=== PATIENT | male | born 1945 | race Caucasian/White ===

== ENCOUNTER → 2016-09-03 | Outpatient (CLI) | payer OTHER ==
[~2016-09-03] MED LIST: AMLO5TAB2 PO; ASPI32ECTA PO; ATOR1TAB21 PO; CIPR500T3 PO; DIPH25CA PO; HYDR-4267 PO; LISI25TA OR; METF1000 PO; TRAZ100T4 PO; TYLE325T5 PO; metoprolol OR
== END ==
LOC: M WUC 09:40
PROVIDERS: ATTEND Urology
DX: Z85.46 Personal history of malignant neoplasm of prostate (principal); R97.20 Elevated prostate specific antigen [PSA]

== ENCOUNTER → 2016-12-10 | Outpatient (CLI) | payer OTHER ==
[~2016-12-10] MED LIST changes: +LISI2.5T76 OR; -LISI25TA OR
== END ==
LOC: M WUC 10:19
PROVIDERS: ATTEND Urology
DX: C61 Malignant neoplasm of prostate (principal)

== ENCOUNTER → 2017-03-11 | Outpatient (CLI) | payer OTHER ==
[~2017-03-11] MED LIST changes: +ASPI325T24 PO; -ASPI32ECTA PO; +HYDR-3911 PO; -HYDR-4267 PO; -METF1000 PO; +METF10004 PO; +TRAZ-136 PO; -TRAZ100T4 PO
== END ==
LOC: M WUC 09:57
PROVIDERS: ATTEND Urology
DX: C61 Malignant neoplasm of prostate (principal)

== ENCOUNTER → 2017-09-18 | Outpatient (CLI) | payer OTHER ==
[2017-09-18 13:13] LABS: PROSTATIC SPECIFIC AG MONITOR < 0.01 NG/ML (< 4.0)
== END ==
LOC: M WUC 10:21
DX: C61 Malignant neoplasm of prostate (principal)
CPT/HCPCS: 84153

== ENCOUNTER → 2018-03-17 | Outpatient (CLI) | payer OTHER ==
[2018-03-17 14:40] LABS: PROSTATIC SPECIFIC AG MONITOR < 0.01 NG/ML (< 4.0)
== END ==
LOC: M WUC 10:56
DX: Z85.46 Personal history of malignant neoplasm of prostate (principal)
CPT/HCPCS: 84153

== ENCOUNTER → 2019-08-27 | Outpatient (CLI) | payer MEDICARE ==
[~2019-08-27] MED LIST changes: -AMLO5TAB2 PO; +AMLO5TAB6 PO; +ASPI-255 PO; -ASPI325T24 PO; -DIPH25CA PO; +DIPH25CA32 PO; -TRAZ-136 PO; +TRAZ-163 PO
[2019-08-27 14:00] LABS: HEMATOCRIT 39.8 % (42.0-52.0); HEMOGLOBIN 12.8 g/dl (13.5-17.5); MEAN CORPUSCULAR HEMOGLOBIN 30.7 pg (27.0-33.0); MEAN CORPUSCULAR HGB CONC 32.2 g/dl (32.0-36.5); MEAN CORPUSCULAR VOLUME 95.4 fl (80.0-96.0); PLATELET COUNT, AUTOMATED 384 10^3/uL (150-450); RED BLOOD COUNT 4.17 10^6/uL (4.30-6.10); WHITE BLOOD COUNT 12.2 10^3/uL (4.0-10.0)
[2019-08-27 14:22] LABS: HEMOGLOBIN A1c 6.6 %
[2019-08-27 14:25] LABS: ALBUMIN 3.5 GM/DL (3.2-5.2); BILIRUBIN,TOTAL 0.4 MG/DL (0.2-1.0); CALCIUM LEVEL 9.3 MG/DL (8.8-10.2); CHOLESTEROL RISK RATIO 3.406 (<5); CREATININE FOR GFR 1.58 MG/DL (0.70-1.30); GLOMERULAR FILTRATION RATE 46.1 (>42); POTASSIUM SERUM 5.4 MEQ/L (3.5-5.1); TOTAL PROTEIN 6.9 GM/DL (6.4-8.2)
== END ==
LOC: M WUC 11:48
PROVIDERS: ATTEND Internal Medicine
DX: I10 Essential (primary) hypertension (principal); E78.5 Hyperlipidemia, unspecified; E11.9 Type 2 diabetes mellitus without complications

== ENCOUNTER → 2020-02-10 | Outpatient (REF) | payer MEDICARE ==
[~2020-02-10] MED LIST changes: -TRAZ-163 PO; +TRAZ-257 PO
== END ==
LOC: M LAB REF 18:06
PROVIDERS: ATTEND Dermatology
DX: C44.622 Squamous cell carcinoma of skin of right upper limb, including shoulder (principal); L82.1 Other seborrheic keratosis
CPT/HCPCS: 11102; 11103; 88305; G0463

== ENCOUNTER → 2020-02-22 | Outpatient (REF) | payer MEDICARE ==
[~2020-02-22] MED LIST changes: +AMLO1TAB24 PO; -AMLO5TAB6 PO
== END ==
LOC: M LAB REF 17:46
PROVIDERS: ATTEND Dermatology
DX: L90.5 Scar conditions and fibrosis of skin (principal)

== ENCOUNTER → 2020-06-01 | Outpatient (REF) | payer MEDICARE | LOC: M LAB REF 18:17 | PROVIDERS: ATTEND Dermatology | DX: L57.0 Actinic keratosis (principal) | CPT/HCPCS: 11102; 88305; G0463 ==

== ENCOUNTER → 2021-05-30 | Outpatient (CLI) | payer MEDICARE ==
[~2021-05-30] MED LIST changes: +ASPI-161 PO; +CHLO25TA PO; +CLAR10CA3 PO; +LISI10TA22 PO; +LOPR1TAB7 PO
--- NOTE | 2021-05-31 07:50 | REP ---
INDICATION: CHEST PAIN, DYSPNEA COMPARISON: None TECHNIQUE: Axial noncontrast images from the thoracic inlet to the upper abdomen with coronal and sagittal reformations. This CT examination was performed using the following dose reduction techniques: Automated exposure control, adjustment of mA and/or kv according to the patient's size, and use of iterative reconstruction technique. FINDINGS: Large pleural effusion completely fills the right hemithorax with essentially complete collapse to the right upper lobe, right middle lobe, and right lower lobe. Underlying mass lesion cannot be excluded. Left hemithorax is well aerated and demonstrates scattered linear scarring primarily in the left upper lobe/lingula as well as suspected left hilar adenopathy. IMPRESSION: Large right pleural effusion completely fills the right hemithorax with essentially near complete collapse to the right lung. Underlying pathology including neoplasm cannot be excluded. <Electronically signed by Michael Harmon > 05/31/21 0746
== END ==
LOC: M RAD 14:51
PROVIDERS: ATTEND Internal Medicine
DX: J90 Pleural effusion, not elsewhere classified (principal); R07.89 Other chest pain; R06.00 Dyspnea, unspecified

== ENCOUNTER 2021-05-31 09:58 | Inpatient (IN) | payer MEDICARE ==
[2021-05-30] MEDS: DOXYCYCLINE HYCLATE 100 MG in D5W MINI-BAG PLUS 100 ML IV SCH (23:55)
[~2021-05-31] VITALS: Ht 167.6 cm; Wt 66.1 kg
[~2021-05-31 09:58] MED LIST changes: -ASPI-161 PO; -CHLO25TA PO; -CLAR10CA3 PO; -LISI10TA22 PO; -LOPR1TAB7 PO
--- NOTE | 2021-05-31 12:12 | REP ---
INDICATION: SOB. COMPARISON: Comparison chest x-ray November 08, 2015. Comparison is made with CT study of the chest from May 30, 2021. TECHNIQUE: PA and lateral views of the chest.. FINDINGS: The right hemithorax is almost completely opacified. There is small wedge of aerated lung in the perihilar region on the right. This corresponds with the CT findings from May 30, 2021. The left lung is clear except for some pleural and subpleural fibrosis in the left inferior chest. The left pleural angles are sharp. The heart is not enlarged. There is no observable mediastinal shift. The right hilar bronchi appear somewhat compressed to the left however. No bony destructive lesion is seen. Intercostal spaces are symmetrical. There are degenerative changes in the thoracic spine and the shoulders. IMPRESSION: Findings consistent with loculated large right pleural effusion with atelectasis of the right lung as seen on chest CT from May 30, 2021. The right hemithorax is nearly completely opacified. <Electronically signed by Myron Stuart > 05/31/21 [id number]
[2021-05-31 13:30] LABS: BASO # 0.1 10^3/uL (0.0-0.2); BASO % 0.8 % (0.0-1.0); EOS % 0.1 % (0.0-3.0); HEMATOCRIT 40.2 % (42.0-52.0); HEMOGLOBIN 12.7 g/dl (13.5-17.5); LYMPH # 1.7 10^3/uL (1.5-5.0); MEAN CORPUSCULAR HEMOGLOBIN 27.3 pg (27.0-33.0); MEAN CORPUSCULAR HGB CONC 31.6 g/dl (32.0-36.5); MEAN CORPUSCULAR VOLUME 86.3 fl (80.0-96.0); MONO # 1.2 10^3/uL (0.0-0.8); NEUTROPHILS # 13.6 10^3/uL (1.5-8.5); NEUTROPHILS % 78.7 % (36.0-66.0); PLATELET COUNT, AUTOMATED 505 10^3/uL (150-450); RED BLOOD COUNT 4.66 10^6/uL (4.30-6.10); WHITE BLOOD COUNT 17.3 10^3/uL (4.0-10.0)
[2021-05-31 13:40] LABS: INR 1.12; PROTHROMBIN TIME 14.8 SECONDS (12.7-14.5)
[2021-05-31 13:41] LABS: PARTIAL THROMBOPLASTIN TIME 30.3 SECONDS (25.9-37.0)
[2021-05-31 15:27] LABS: ALBUMIN 2.2 GM/DL (3.2-5.2); BILIRUBIN,TOTAL 0.4 MG/DL (0.2-1.0); CALCIUM LEVEL 8.9 MG/DL (8.8-10.2); CK-MB VALUE MASS 1.2 NG/ML (<3.6); CREATININE FOR GFR 1.55 MG/DL (0.70-1.30); GLOMERULAR FILTRATION RATE 46.9 (>42); MB/CK RELATIVE INDEX 3.43 (< OR =4); POTASSIUM SERUM 5.6 MEQ/L (3.5-5.1); TOTAL PROTEIN 5.6 GM/DL (6.4-8.2); TROPONIN I 0.02 NG/ML (< 0.10)
[2021-05-31] MEDS ORDERED: SOD POLYSTYRENE SULFONATE SUSP 15 GM/60 ML UD PO ONE (16:00)
[2021-05-31] MEDS ORDERED: CALCIUM GLUCONATE 1,000 MG in D5W MINI-BAG PLUS 100 ML IV ONE ×2 (16:00→18:30)
[2021-05-31] MEDS ORDERED: hydrALAZINE 20MG/ML 1ML VIAL (J0360 PER 20MG) IV ONE (16:10)
[2021-05-31] MEDS ORDERED: DEXTROSE 50% 50 ML SYRINGE IV PRN (16:10)
[2021-05-31] MEDS ORDERED: GLUCOSE 4GM CHEW TABLET PO PRN (16:10)
[2021-05-31] MEDS ORDERED: GLUCAGON INJ 1MG VIAL SC PRN (16:10)
[2021-05-31 16:32] LABS: C REACTIVE PROTEIN QUANTITATIV 3.26 MG/DL (0.00-0.30)
[2021-05-31 16:42] LABS: ERYTHROCYTE SEDIMENTATION RATE 36 mm/hr (0-20)
[2021-05-31 17:24] LABS: THYROID STIMULATING HORMONE 0.862 uIU/ML (0.358-3.740)
[2021-05-31] MEDS ORDERED: CHLO25TA PO (19:14)
[2021-05-31] MEDS ORDERED: LISI10TA22 PO (19:14)
[2021-05-31] MEDS ORDERED: LOPR1TAB7 PO (19:14)
[2021-05-31] MEDS ORDERED: ASPI-161 PO (19:14)
[2021-05-31] MEDS ORDERED: CLAR10CA3 PO (19:14)
[2021-05-31] MEDS ORDERED: HOME MED LIST COMPLETE! XX SCH (19:15)
--- NOTE | 2021-05-31 20:00 | HPEPDOC ---
[facility] Medical History & Physical Date of Admission May 31, 2021 Date of Service: May 31, 2021 History and Physical CHIEF COMPLAINT: Shortness of breath for 3 weeks HISTORY OF PRESENT ILLNESS: 76-year-old male sent to the emergency room by his primary care physician Dr. Venu Richey for admission to evaluate a large right pleural effusion with compression and collapse of the right lung on CT of the chest done as outpat ient. Patient complained of 3-week history of worsening shortness of breath, dyspnea on exertion walking from the bedroom to the bathroom, increasing fatigue. He denies fever, chills, cough, lower extremity edema, paroxysmal nocturnal dyspnea, pleuritic chest pain, nausea, vomiting, diarrhea, abdominal pain, hematemesis, coffee-ground emesis, black tarry stools, bright red blood per rectum. He admits to smoking one 1 pack of cigarettes over 2 days for over 40 years, on and off, quit a week ago, 2 pound weight loss over the past 2 weeks without change in appetite. In the emergency room patient was saturating 94% room air. EKG showed sinus rhythm. X-ray shows large loculated right pleural effusion with lung collapse. COVID-19 was negative. Transplant Rn was consulted for chest tube placement and management. PAST MEDICAL HISTORY: Diabetes Hypertension COPD Chronic kidney disease Chronic low back pain Prostate cancer Dyslipidemia Insomnia PAST SURGICAL HISTORY: Angioplasty kidneys and stent placement Knee surgery Robotic assisted radical prostatectomy in 2016 SOCIAL HISTORY: Quit smoking 1 week ago denies recreational drug use retired no alcohol abuse lives with at home FAMILY HISTORY: Father at age of 59 CAD myocardial infarction Mother ALLERGIES: Please see below. REVIEW OF SYSTEMS: 10 point review of systems negative aside from positive findings on HPI HOME MEDICATIONS: Please see below. PHYSICAL EXAMINATION: VITAL SIGNS: See below GENERAL APPEARANCE: Mild distress no nasal flaring completes 7-8 word sentences HEENT: No tracheal deviation dry mucous membranes no carotid bruit CARDIOVASCULAR: S1-S2 regular rate rhythm LUNGS: Diminished breath sounds dullness to percussion on the right decreased fremitus egophony ABDOMEN: Positive bowel sounds soft nontender nondistended EXTREMITIES: No cyanosis, clubbing LABORATORY DATA: See below. IMAGING: See below MICROBIOLOGY: Please see below. ASSESSMENT: 76-year-old male sent to the emergency room by his primary care physician Dr. Venu Richey for admission to evaluate a large right pleural effusion with compression and collapse of the right lung on CT of the chest done as outpatient. Patient complained of 3-week history of worsening shortness of breath, dyspnea on exertion walking from the bedroom to the bathroom, increasing fatigue. He denies fever, chills, cough, lower extremity edema, paroxysmal nocturnal dyspnea, pleuritic chest pain, nausea, vomiting, diarrhea, abdominal pain, hematemesis, coffee-ground emesis, black tarry stools, bright red blood per rectum. He admits to smoking one 1 pack of cigarettes over 2 days for over 40 years, on and off, quit a week ago, 2 pound weight loss over the past 2 weeks without change in appetite. In the emergency room patient was saturating 94% room air. EKG showed sinus rhythm. X-ray shows large loculated right pleural effusion with lung collapse. COVID-19 was negative. Transplant Rn was consulted for chest tube placement and management. Large Right loculated pleural effusion with lung collapse -slurry man consulted for chest tube placement and management -pleural fluid analysis :cytology, exudative vs transudative, infectious, rheumatologic check TONIA, TSH -saturating 94% on RA -negative covid 19, afebrile -leukocytosis.empiric abx coverage.dx if negative sputum cx. - check procalcitonin, check sputum sample, urine legionella, urine strep pneumo HTN urgency -resumed home meds -pcu admit -prn iv hydralazine, add isosorbide Elevated BNP/?new onset CHF unknown EF -check 2 Decho -trial of lasix CKD3 -resumed lisinopril Hyperkalemia -given kayexalate and calcium gluconate -tele monitoring tobacco abuse /copd -cessation counselling nicotine replacement risk for malignant pleural effusion-await cytology from pleural fluid Vital Signs Vital Signs Date Time Temp Pulse Resp B/P (MAP) Pulse Ox O2 Delivery O2 Flow Rate FiO2 05/31/21 18:05 227/102 05/31/21 18:02 78 05/31/21 10:00 98.4 18 92 Room Air Laboratory Data Labs 24H Laboratory Tests 2 05/31/21 13:05: Prothrombin Time 14.8H, Prothromb Time International Ratio 1.12, Activated Partial Thromboplast Time 30.3 05/31/21 13:06: Immature Granulocyte % (Auto) 3.4H, Neutrophils (%) (Auto) 78.7H, Lymphocytes (%) (Auto) 10.0L, Monocytes (%) (Auto) 7.0, Eosinophils (%) (Auto) 0.1, Basophils (%) (Auto) 0.8, Neutrophils # (Auto) 13.6H, Lymphocytes # (Auto) 1.7, Monocytes # (Auto) 1.2H, Eosinophils # (Auto) 0.0, Basophils # (Auto) 0.1, Nucleated Red Blood Cells % (auto) 0.0, Erythrocyte Sedimentation Rate 36H 05/31/21 14:36: Anion Gap 5L, Glomerular Filtration Rate 46.9, Calcium Level 8.9, Phosphorus Level 3.0, Total Bilirubin 0.4, Aspartate Amino Transf (AST/SGOT) 10, Alanine Aminotransferase (ALT/SGPT) 15, Alkaline Phosphatase 102, Lactate Dehydrogenase 191, Total Creatine Kinase 35L, Creatine Kinase MB 1.2, Creatine Kinase MB Relative Index 3.43, Troponin I 0.02, C-Reactive Protein, Quantitative 3.26H, XT-Vmt-N-Type Natriuretic Peptide 4011H, Total Protein 5.6L, Albumin 2.2L, Albumin/Globulin Ratio 0.6, Triglycerides Level 170H, Cholesterol Level 109, Thyroid Stimulating Hormone (TSH) 0.862 05/31/21 17:11: Procalcitonin 0.07 CBC/BMP Laboratory Tests 05/31/21 13:06 05/31/21 14:36 Microbiology Microbiology 05/31/21 Blood Culture, Received Pending 05/31/21 Respiratory Virus Panel (PCR) ([facility]) - Final, Complete Home Medications Scheduled Amlodipine Besylate (Amlodipine Besylate) 5 Mg Tab, 5 MG PO DAILY Aspirin (Aspirin EC) 81 Mg Tablet.dr, 81 MG PO QPM Atorvastatin Calcium (Atorvastatin Calcium) 20 Mg Tab, 20 MG PO QPM Chlorthalidone (Chlorthalidone) 25 Mg Tablet, 25 MG PO DAILY Diphenhydramine HCl (Diphenhydramine HCl) 25 Mg Cap, 25 MG PO QHS Hydralazine HCl (Hydralazine HCl) 50 Mg Tab, 50 MG PO TID Lisinopril (Lisinopril) 10 Mg Tablet, 10 MG PO DAILY Loratadine (Claritin) 10 Mg Capsule, 10 MG PO DAILY Metformin HCl (Metformin HCl) 1,000 Mg Tab, 1,000 MG PO BID Metoprolol Tartrate (Lopressor) 100 Mg Tablet, 100 MG PO BID Trazodone HCl (Trazodone HCl) 100 Mg Tab, 100 MG PO QHS Allergies Coded Allergies: No Known Allergies (Verified , 03/06/03) A-FIB/CHADSVASC A-FIB History Current/History of A-Fib/PAF?: No Current PO Anticoag Therapy: No Age/Risk Factor Scoring CHADSVASC: CHADSVASC Response (Comments) Value Age Risk Factor Age 65-74 years old 1 Gender Risk Factor Male 0 Hx of CHF No 0 Hx of HTN Yes 1 Hx of Stroke/TIA/or VTE No 0 Hx of Diabetes No 0 Hx of Vascular Disease No 0 Total 2 Treatment Treatment ordered: NONE JOHN MATOS MD May 31, 2021 19:58
--- NOTE | 2021-05-31 20:01 | ECGEPIP ---
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
--- NOTE | 2021-05-31 21:08 | REPVR ---
PROCEDURE INFORMATION: Exam: CT Head Without Contrast Exam date and time: 05/31/2021 8:30 PM Age: 76 years old Clinical indication: Other: Hypertensive urgency; Additional info: Hypertensive urgency R/O intracranial hemorrhage TECHNIQUE: Imaging protocol: Computed tomography of the head without contrast. Radiation optimization: All CT scans at this facility use at least one of these dose optimization techniques: automated exposure control; mA and/or kV adjustment per patient size (includes targeted exams where dose is matched to clinical indication); or iterative reconstruction. COMPARISON: No relevant prior studies available. FINDINGS: Brain: Decreased attenuation of the supratentorial white matter is likely secondary to chronic microvascular ischemia. No acute intracranial hemorrhage. Cerebral ventricles: Ventricular and subarachnoid spaces are age appropriate. Paranasal sinuses: Mild scattered paranasal sinus disease. Mastoid air cells: Mild partial opacification of the mastoid air cells. Vasculature: Intracranial vascular calcification. Bones/joints: Unremarkable. No acute fracture. Soft tissues: Unremarkable. IMPRESSION: No acute intracranial abnormality. Electronically signed by: Tono Byrnes On 05/31/2021 21:08:06 PM
[2021-05-31 21:25] VITALS: BP 195/86
[2021-05-31] MEDS: FUROSEMIDE 40MG/4ML VIAL (J1940) IV SCH (22:51)
[2021-05-31] MEDS: cefTRIAXone SOD 2 GM in D5W MINI-BAG PLUS 50 ML IV SCH (22:51)
[2021-05-31] MEDS: **hydrALAZINE** 50 MG TAB PO SCH (22:52)
[2021-05-31] MEDS: METOPROLOL TARTRATE 100 MG TAB PO SCH (22:52)
[2021-05-31] MEDS: HumaLOG INSULIN (NovoLOG) PER UNIT SC SCH ×2 (22:58→23:02)
[2021-05-31] MEDS: ISOSORBIDE DIN. (ISORDIL) 20 MG TAB PO SCH (23:03)
[2021-06-01] VITALS (7 sets, daily range): BP systolic 134–186; BP diastolic 67–87
[2021-06-01 00:07] LABS: CALCIUM LEVEL 9.4 MG/DL (8.8-10.2); CK-MB VALUE MASS 3.1 NG/ML (<3.6); CREATININE FOR GFR 1.52 MG/DL (0.70-1.30); MB/CK RELATIVE INDEX 8.61 (< OR =4); POTASSIUM SERUM 4.6 MEQ/L (3.5-5.1); TROPONIN I 0.03 NG/ML (< 0.10)
[2021-06-01] MEDS: ISOSORBIDE DIN. (ISORDIL) 20 MG TAB PO SCH ×2 (00:26→04:56)
[2021-06-01] MEDS: hydrALAZINE 20MG/ML 1ML VIAL (J0360 PER 20MG) IV PRN (01:09)
[2021-06-01] MEDS: FUROSEMIDE 40MG/4ML VIAL (J1940) IV SCH (04:46)
[2021-06-01 06:19] LABS: BASO # 0.1 10^3/uL (0.0-0.2); BASO % 0.6 % (0.0-1.0); EOS % 0.1 % (0.0-3.0); HEMATOCRIT 38.3 % (42.0-52.0); HEMOGLOBIN 12.1 g/dl (13.5-17.5); LYMPH # 2.1 10^3/uL (1.5-5.0); LYMPH % 11.1 % (24.0-44.0); MEAN CORPUSCULAR HGB CONC 31.6 g/dl (32.0-36.5); MEAN CORPUSCULAR VOLUME 85.5 fl (80.0-96.0); MONO # 1.4 10^3/uL (0.0-0.8); MONO % 7.6 % (2.0-8.0); NEUTROPHILS # 14.4 10^3/uL (1.5-8.5); NEUTROPHILS % 77.6 % (36.0-66.0); PLATELET COUNT, AUTOMATED 538 10^3/uL (150-450); RED BLOOD COUNT 4.48 10^6/uL (4.30-6.10); WHITE BLOOD COUNT 18.5 10^3/uL (4.0-10.0)
[2021-06-01 06:29] LABS: INR 1.24; PARTIAL THROMBOPLASTIN TIME 32.2 SECONDS (25.9-37.0); PROTHROMBIN TIME 16.1 SECONDS (12.7-14.5)
[2021-06-01 06:42] LABS: ALBUMIN 2.2 GM/DL (3.2-5.2); BILIRUBIN,DIRECT 0.1 MG/DL (0.0-0.2); BILIRUBIN,TOTAL 0.4 MG/DL (0.2-1.0); CALCIUM LEVEL 9.3 MG/DL (8.8-10.2); CREATININE FOR GFR 1.52 MG/DL (0.70-1.30); MAGNESIUM LEVEL 1.6 MG/DL (1.8-2.4); POTASSIUM SERUM 4.3 MEQ/L (3.5-5.1); TOTAL PROTEIN 5.9 GM/DL (6.4-8.2)
[2021-06-01] MEDS ORDERED: MAG SULF 1GM/100ML (MAG RUN) 1 GM in IV 1 EA IV ONE (08:00)
[2021-06-01] MEDS: HumaLOG INSULIN (NovoLOG) PER UNIT SC SCH ×4 (08:12→21:00)
[2021-06-01] MEDS: METOPROLOL TARTRATE 100 MG TAB PO SCH ×2 (08:12→21:16)
[2021-06-01] MEDS: **hydrALAZINE** 50 MG TAB PO SCH ×3 (08:12→21:16)
--- NOTE | 2021-06-01 08:59 | IPNPDOC ---
Date Seen The patient was seen on 06/01/21. Progress Note Subjective: Still complains of shortness of breath, dyspnea on exertion when walking from bed to the bathroom, but denies chest pain pressure tightness lightheadedness dizziness fever chills. Has cough productive of white sputum. Objective: PHYSICAL EXAMINATION: VITAL SIGNS: See below GENERAL APPEARANCE: No use of respiratory accessory muscles cyanosis Has conversational dyspnea but able to say 7-8 words HEENT: No tracheal deviation moist mucous membranes no carotid bruit CARDIOVASCULAR: S1-S2 regular rate rhythm LUNGS: Diminished breath sounds dullness to percussion on the right decreased fremitus egophony ABDOMEN: Positive bowel sounds soft nontender nondistended EXTREMITIES: No cyanosis, clubbing LABORATORY DATA: See below. IMAGING: See below MICROBIOLOGY: Please see below. ASSESSMENT: 76-year-old male sent to the emergency room by his primary care physician Dr. Venu Richey for admission to evaluate a large right pleural effusion with compression and collapse of the right lung on CT of the chest done as outpatient. Patient complained of 3-week history of worsening shortness of breath, dyspnea on exertion walking from the bedroom to the bathroom, increasing fatigue. He denies fever, chills, cough, lower extremity edema, paroxysmal nocturnal dyspnea, pleuritic chest pain, nausea, vomiting, diarrhea, abdominal pain, hematemesis, coffee-ground emesis, black tarry stools, bright red blood per rectum. He admits to smoking one 1 pack of cigarettes over 2 days for over 40 years, on and off, quit a week ago, 2 pound weight loss over the past 2 weeks without change in appetite. In the emergency room patient was saturating 94% room air. EKG showed sinus rhythm. X-ray shows large loculated right pleural effusion with lung collapse. COVID-19 was negative. Mandarin Speaking Nanny was consulted for chest tube placement and management. Large Right loculated pleural effusion with lung collapse Mandarin Speaking Nanny consulted for chest tube placement and management Pleural fluid will be sent for analysis Concern for malignancy due to longtime history of tobacco abuse. Due to leukocytosis patient was started on empiric antibiotics for possible pneumonia and parapneumonic effusion, but unlikely Discontinue antibiotics once cultures from pleural fluid are negative HTN urgency Improved overnight Status post IV hydralazine isosorbide lisinopril metoprolol and Norvasc Resumed home meds IV hydralazine as needed Telemetry monitoring Elevated BNP/?new onset CHF unknown EF -Ordered 2 Decho -No significant improvement with Lasix overnight CKD3 -resumed lisinopril -Remained stable even after Lasix diuresis overnight Hyperkalemia, resolved -given kayexalate and calcium gluconate -tele monitoring tobacco abuse /copd -cessation counselling nicotine replacement risk for malignant pleural effusion-await cytology from pleural fluid VS, I&O, 24H, Fishbone Vital Signs/I&O Vital Signs Date Time Temp Pulse Resp B/P (MAP) Pulse Ox O2 Delivery O2 Flow Rate FiO2 06/01/21 08:12 80 153/78 06/01/21 07:19 98.4 17 90 Room Air I&O- Last 24 Hours up to 6 AM 06/01/21 06:00 Intake Total 210 ml Output Total 375 ml Balance -165 ml Laboratory Data 24H LABS Laboratory Tests 2 05/31/21 13:05: Prothrombin Time 14.8H, Prothromb Time International Ratio 1.12, Activated Partial Thromboplast Time 30.3 05/31/21 13:06: Immature Granulocyte % (Auto) 3.4H, Neutrophils (%) (Auto) 78.7H, Lymphocytes (%) (Auto) 10.0L, Monocytes (%) (Auto) 7.0, Eosinophils (%) (Auto) 0.1, Basophils (%) (Auto) 0.8, Neutrophils # (Auto) 13.6H, Lymphocytes # (Auto) 1.7, Monocytes # (Auto) 1.2H, Eosinophils # (Auto) 0.0, Basophils # (Auto) 0.1, Nucleated Red Blood Cells % (auto) 0.0, Erythrocyte Sedimentation Rate 36H 05/31/21 14:36: Anion Gap 5L, Glomerular Filtration Rate 46.9, Calcium Level 8.9, Phosphorus Level 3.0, Total Bilirubin 0.4, Aspartate Amino Transf (AST/SGOT) 10, Alanine Am inotransferase (ALT/SGPT) 15, Alkaline Phosphatase 102, Lactate Dehydrogenase 191, Total Creatine Kinase 35L, Creatine Kinase MB 1.2, Creatine Kinase MB Relative Index 3.43, Troponin I 0.02, C-Reactive Protein, Quantitative 3.26H, HH-Jgd-B-Type Natriuretic Peptide 4011H, Total Protein 5.6L, Albumin 2.2L, Albumin/Globulin Ratio 0.6, Triglycerides Level 170H, Cholesterol Level 109, Thyroid Stimulating Hormone (TSH) 0.862 05/31/21 17:11: Procalcitonin 0.07 05/31/21 22:58: Bedside Glucose (Misc Panel) 250H 05/31/21 23:12: Anion Gap 8, Glomerular Filtration Rate 48.0, Calcium Level 9.4, Total Creatine Kinase 36L, Creatine Kinase MB 3.1, Creatine Kinase MB Relative Index 8.61H, Troponin I 0.03# 06/01/21 05:21: Anion Gap 11, Glomerular Filtration Rate 48.0, Calcium Level 9.3, Immature Granulocyte % (Auto) 3.0, Neutrophils (%) (Auto) 77.6H, Lymphocytes (%) (Auto) 11.1L, Monocytes (%) (Auto) 7.6, Eosinophils (%) (Auto) 0.1, Basophils (%) (Auto) 0.6, Neutrophils # (Auto) 14.4H, Lymphocytes # (Auto) 2.1, Monocytes # (Auto) 1.4H, Eosinophils # (Auto) 0.0, Basophils # (Auto) 0.1, Nucleated Red Blood Cells % (auto) 0.0, Prothrombin Time 16.1H, Prothromb Time International Ratio 1.24, Activated Partial Thromboplast Time 32.2, Magnesium Level 1.6L, Total Bilirubin 0.4, Direct Bilirubin 0.1, Aspartate Amino Transf (AST/SGOT) 10, Alanine Aminotransferase (ALT/SGPT) 15, Alkaline Phosphatase 109, Lactate Dehydrogenase 222, Total Protein 5.9L, Albumin 2.2L, Albumin/Globulin Ratio 0.6 CBC/BMP Laboratory Tests 05/31/21 13:06 05/31/21 14:36 05/31/21 23:12 06/01/21 05:21 Microbiology Microbiology 05/31/21 Blood Culture, Received Pending 05/31/21 Respiratory Virus Panel (PCR) ([facility]) - Final, Complete JOHN MATOS MD Jun 01, 2021 08:59
[2021-06-01] MEDS ORDERED: amLODIPine 5 MG TAB PO SCH (09:00)
[2021-06-01] MEDS ORDERED: LIDOCAINE 1% MDV 20ML VIAL As Ordered ONE (09:06)
--- NOTE | 2021-06-01 09:17 | REP ---
INDICATION: sob. COMPARISON: Comparison chest radiograph May 31, 2021. TECHNIQUE: Portable upright AP chest radiograph. FINDINGS: There is now complete opacification of the right hemithorax consistent with progressive atelectasis on of the small amount of remaining aerated lung visible yesterday. There is pleuroparenchymal fibrosis and calcification on the left. Heart is not enlarged. No left-sided infiltrate is seen. Pulmonary vasculature is somewhat congested in the left lung. There is evidence of a radiolucent lesion in the proximal humeral diaphysis on the left on today's chest x-ray. This measures 3.2 cm in greatest diameter. This is felt to be highly suspicious for a bony metastatic deposit. On review of the chest CT from May 30, 2021, there is a lytic lesion in the right scapula visible. there are mottled lucencies in the spine and sternum as well. EKG monitoring electrodes are seen. IMPRESSION: Complete opacification of the right hemithorax. Some vascular congestion in the left lung. 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 <Electronically signed by Myron Stuart > 06/01/21 0913
[2021-06-01] MEDS: DOXYCYCLINE HYCLATE 100 MG in D5W MINI-BAG PLUS 100 ML IV SCH ×2 (09:22→22:13)
--- NOTE | 2021-06-01 10:07 | CR.PDOC ---
General Date of Consultation: Jun 01, 2021 Referring Provider: JOHN MATOS MD Consultation REASON FOR CONSULTATION/CHIEF COMPLAINT: Referred by PMD for pleural effusion HISTORY OF PRESENT ILLNESS: 76-year-old man with hypertension, diabetes, CKD was referred to the ED by his primary care for abnormal CT chest. Upon speaking with the patient he denied any symptoms leading up to his presentation to the ED however he may be poor historian. He denies shortness of breath, cough, hemoptysis, fever, chills, weight loss. He is a former smoker he says he quit 3 weeks ago he said he smoked for about 10 years about 1 pack/day. The patient presented to the ER he was not in any distress, he was 90% on room air, pulm danni was consulted for large right pleural effusion requiring drainage. ALLERGIES: Please see below. HOME MEDICATIONS: Please see below. PAST MEDICAL HISTORY: Hypertension, diabetes, CKD PAST SURGICAL HISTORY: Angioplasty kidneys and stent placement Knee surgery Robotic assisted radical prostatectomy in 2016 FAMILY HISTORY: Father had CAD SOCIAL HISTORY: Denies alcohol use and or drug use. He used to work in a paper pulp industry. He is functional at home with his daily activities. He is a former smoker quit about 1 month ago smoked 1 pack/day for 10 years. REVIEW OF SYSTEMS: CONSTITUTIONAL: Denies fever, chills, night sweats, weight loss EYES: No blurring of vision or redness. ENT: No sore throat. No epistaxis. No tinnitus. CARDIOVASCULAR: No chest pain. No palpitations. RESPIRATORY: See HPI GASTROINTESTINAL: No nausea, vomiting, or diarrhea. GENITOURINARY: No frequency, urgency, nocturia. No hematuria or dysuria. MUSCULOSKELETAL: No arthralgias or myalgias. INTEGUMENTARY: No rash or swelling NEUROLOGIC: No headache. No numbness or tingling of the extremities. No weakness. PSYCHIATRIC: No confusion or mood changes. ENDOCRINE: No fatigue, no goiter. HEMATOLOGICAL: No bleeding. No petechiae. No bruising. PHYSICAL EXAMINATION: VITAL SIGNS: Please see below. GENERAL APPEARANCE: Alert and awake. . HEENT: no thyromegaly, trachea midline, PERRLA. normal mucous membranes . RESPIRATORY: Reduced to absent breath sounds on the right, good air entry. CARDIOVASCULAR: +s1 s2, no murmurs. ABDOMEN: nontender, not distended, +BS EXTREMITIES: no edema or erythema. palpable distal pulses SKIN: no rash, no purpura NEUROLOGICAL: no sensory or motor deficits, orientedx3. LABORATORY DATA: Please see below. Labs and Imaging personally reviewed by me. Pertinent imaging: Large right hemithorax pleural effusion on CT chest with suspected left hilar adenopathy Pertinent labs: WBC count is 18, coagulation studies are normal, creatinine is 1.52 and appears at baseline ASSESSMENT: 1. Large right-sided pleural effusion, patient is asymptomatic. 90% on room air 2. Clinically no evidence of pneumonia, leukocytosis may be reactive from the large effusion PLAN: * Discussed with patient the option of drainage today with a small chest tube he agreed. * We will send pleural fluid for cytology, cell counts, LDH, protein, BNP, cultures, pH, glucose * Check procalcitonin, would DC antibiotics if negative * DVT prophylaxis Vital Signs/I&O Vital Signs Date Time Temp Pulse Resp B/P (MAP) Pulse Ox O2 Delivery O2 Flow Rate FiO2 06/01/21 08:12 80 153/78 06/01/21 07:19 98.4 17 90 Room Air I&O- Last 24 Hours up to 6 AM 06/01/21 06:00 Intake Total 210 ml Output Total 375 ml Balance -165 ml Laboratory Data Labs 24H Laboratory Tests 2 05/31/21 13:05: Prothrombin Time 14.8H, Prothromb Time International Ratio 1.12, Activated Partial Thromboplast Time 30.3 05/31/21 13:06: Immature Granulocyte % (Auto) 3.4H, Neutrophils (%) (Auto) 78.7H, Lymphocytes (%) (Auto) 10.0L, Monocytes (%) (Auto) 7.0, Eosinophils (%) (Auto) 0.1, Basophils (%) (Auto) 0.8, Neutrophils # (Auto) 13.6H, Lymphocytes # (Auto) 1.7, Monocytes # (Auto) 1.2H, Eosinophils # (Auto) 0.0, Basophils # (Auto) 0.1, Nucleated Red Blood Cells % (auto) 0.0, Erythrocyte Sedimentation Rate 36H 05/31/21 14:36: Anion Gap 5L, Glomerular Filtration Rate 46.9, Calcium Level 8.9, Phosphorus Level 3.0, Total Bilirubin 0.4, Aspartate Amino Transf (AST/SGOT) 10, Alanine Aminotransferase (ALT/SGPT) 15, Alkaline Phosphatase 102, Lactate Dehydrogenase 191, Total Creatine Kinase 35L, Creatine Kinase MB 1.2, Creatine Kinase MB Relative Index 3.43, Troponin I 0.02, C-Reactive Protein, Quantitative 3.26H, XD-Ruv-E-Type Natriuretic Peptide 4011H, Total Protein 5.6L, Albumin 2.2L, Albumin/Globulin Ratio 0.6, Triglycerides Level 170H, Cholesterol Level 109, Thyroid Stimulating Hormone (TSH) 0.862 05/31/21 17:11: Procalcitonin 0.07 05/31/21 22:58: Bedside Glucose (Misc Panel) 250H 05/31/21 23:12: Anion Gap 8, Glomerular Filtration Rate 48.0, Calcium Level 9.4, Total Creatine Kinase 36L, Creatine Kinase MB 3.1, Creatine Kinase MB Relative Index 8.61H, Troponin I 0.03# 06/01/21 05:21: Anion Gap 11, Glomerular Filtration Rate 48.0, Calcium Level 9.3, Immature Granulocyte % (Auto) 3.0, Neutrophils (%) (Auto) 77.6H, Lymphocytes (%) (Auto) 11.1L, Monocytes (%) (Auto) 7.6, Eosinophils (%) (Auto) 0.1, Basophils (%) (Aut o) 0.6, Neutrophils # (Auto) 14.4H, Lymphocytes # (Auto) 2.1, Monocytes # (Auto) 1.4H, Eosinophils # (Auto) 0.0, Basophils # (Auto) 0.1, Nucleated Red Blood Cells % (auto) 0.0, Prothrombin Time 16.1H, Prothromb Time International Ratio 1.24, Activated Partial Thromboplast Time 32.2, Magnesium Level 1.6L, Total Bilirubin 0.4, Direct Bilirubin 0.1, Aspartate Amino Transf (AST/SGOT) 10, Alanine Aminotransferase (ALT/SGPT) 15, Alkaline Phosphatase 109, Lactate Dehydrogenase 222, Total Protein 5.9L, Albumin 2.2L, Albumin/Globulin Ratio 0.6 CBC/BMP Laboratory Tests 05/31/21 13:06 05/31/21 14:36 05/31/21 23:12 06/01/21 05:21 Microbiology Microbiology 05/31/21 Blood Culture, Received Pending 10/1/21 Respiratory Virus Panel (PCR) ([facility]) - Final, Complete Allergies Coded Allergies: No Known Allergies (Verified , 03/06/03) Home Medications Scheduled Amlodipine Besylate (Amlodipine Besylate) 5 Mg Tab, 5 MG PO DAILY, (Reported) Aspirin (Aspirin EC) 81 Mg Tablet.dr, 81 MG PO QPM, (Reported) Atorvastatin Calcium (Atorvastatin Calcium) 20 Mg Tab, 20 MG PO QPM, (Reported) Chlorthalidone (Chlorthalidone) 25 Mg Tablet, 25 MG PO DAILY, (Reported) Diphenhydramine HCl (Diphenhydramine HCl) 25 Mg Cap, 25 MG PO QHS, (Reported) Hydralazine HCl (Hydralazine HCl) 50 Mg Tab, 50 MG PO TID, (Reported) Lisinopril (Lisinopril) 10 Mg Tablet, 10 MG PO DAILY, (Reported) Loratadine (Claritin) 10 Mg Capsule, 10 MG PO DAILY, (Reported) Metformin HCl (Metformin HCl) 1,000 Mg Tab, 1,000 MG PO BID, (Reported) Metoprolol Tartrate (Lopressor) 100 Mg Tablet, 100 MG PO BID, (Reported) Trazodone HCl (Trazodone HCl) 100 Mg Tab, 100 MG PO QHS, (Reported) HAMMAD GONZALEZ MD Jun 01, 2021 10:07
--- NOTE | 2021-06-01 11:55 | ROOPDOC ---
[facility] Report Of Operation Report of Operation INDICATION: Pleural effusion PROCEDURE: Right side 14 Marshallese chest tube placement PROCEDURE DRAWBENCH OPERATOR: Dr. Honag CONSENT: Consent was obtained prior to the procedure. Indications, risks, and benefits were explained at length. PROCEDURE SUMMARY: A time out was performed and after the chest x-ray was reviewed, the appropriate side was confirmed and marked. My hands were washed immediately prior to the procedure. I wore a surgical cap, mask with protective eyewear, sterile gown and sterile gloves throughout the procedure. The patient was prepped and draped in a sterile manner using chlorhexidine scrub after the patient was positioned in the usual fashion. A total of 5 ml of 1% lidocaine was used to anesthesize the skin, subcutaneous tissue, superior aspect of the rib periosteum and parietal pleura. Using a 18-gauge needle the pleural space was accessed. Syringe was removed from the needle and guidewire was inserted through the needle into the pleural space. A 2 cm incision around the guidewire was made using a scalpel. The dilator was then threaded over the guidewire and several passes were made to dilate the tract for the chest tube. The 14 Marshallese chest tube was then inserted over the guidewire into the pleural space. Appropriate amount of pleural fluid started to drain from the chest tube and the guidewire was then removed. Appropriate specimens were obtained. Then the chest tube was attached to the drainage device and pleural fluid started to drain. 1.5 L of yellow fluid was drained almost immediately and patient started to cough so the chest tube was clamped. Small suture in the skin was used to anchor and secured the chest tube in place. Sterile dressings were applied. Approximately 300 cc of pleural fluid was taken for specimen analysis. The patient tolerated the procedure well. There was minimal blood loss approximately 5 cc. Postprocedural chest x-ray is pending. HAMMAD HOANG MD Jun 01, 2021 11:55
--- NOTE | 2021-06-01 12:12 | REP ---
INDICATION: S/p right CT placement. COMPARISON: Comparison is made with a 8:11 a.m. chest x-ray from this date. TECHNIQUE: Sitting portable AP radiograph 11:43 a.m. film. Single-view. FINDINGS: A right chest tube has been placed at the base terminating and medially. The right hemithorax is improved. There is considerable circumferential pleural thickening surrounding some central aerated lung in the right chest. There is indicating some overall volume loss in the right hemithorax now post chest tube placement. The left lung is clear. A shift of the mediastinum to the right no complication is seen. IMPRESSION: Partial re-expansion of the right lung. Improvement in right pleural effusion. Right chest tube in place at the base. <Electronically signed by Myron Stuart > 06/01/21 [id number]
[2021-06-01 12:32] LABS: PH BODY FLUID 7.491 UNITS (NOT ESTABLISHED); SOURCE, BODY FLUID pH PLEURAL
[2021-06-01 12:49] LABS: APPEARANCE, BODY FLUID HAZY (CLEAR); PLEURAL FL COLOR YELLOW (COLORLESS); SOURCE, BODY FLUID PLEURAL
[2021-06-01 13:19] LABS: AMYLASE, BODY FLUID 26 U/L (NOT ESTABLISHED); CHOLESTEROL, BODY FLUID 51 MG/DL (NOT ESTABLISHED); LDH, BODY FLUID 148 U/L (NOT ESTABLISHED); SOURCE, BODY FLUID ALBUMIN PLEURAL; SOURCE, BODY FLUID AMYLASE PLEURAL; SOURCE, BODY FLUID CHOL PLEURAL; SOURCE, BODY FLUID GLUCOSE PLEURAL; SOURCE, BODY FLUID LDH PLEURAL; SOURCE, BODY FLUID TOT PROTEIN PLEURAL; SOURCE, BODY FLUID TRIG PLEURAL; TOTAL PROTEIN, BODY FLUID 3.7 G/DL (NOT ESTABLISHED); TRIGLYCERIDE, BODY FLUID 63 MG/DL (NOT ESTABLISHED)
[2021-06-01] MEDS: cefTRIAXone SOD 2 GM in D5W MINI-BAG PLUS 50 ML IV SCH (21:17)
[2021-06-02] VITALS (10 sets, daily range): BP systolic 146–186; BP diastolic 63–88
[2021-06-02] MEDS ORDERED: ONDANSETRON 4MG/2ML VIAL IV PRN (04:30)
[2021-06-02 04:39] LABS: BASO # 0.1 10^3/uL (0.0-0.2); BASO % 0.4 % (0.0-1.0); HEMATOCRIT 40.5 % (42.0-52.0); LYMPH # 2.6 10^3/uL (1.5-5.0); LYMPH % 10.3 % (24.0-44.0); MEAN CORPUSCULAR HEMOGLOBIN 27.3 pg (27.0-33.0); MEAN CORPUSCULAR HGB CONC 32.1 g/dl (32.0-36.5); MEAN CORPUSCULAR VOLUME 85.1 fl (80.0-96.0); MONO # 1.4 10^3/uL (0.0-0.8); MONO % 5.8 % (2.0-8.0); NEUTROPHILS # 20.1 10^3/uL (1.5-8.5); NEUTROPHILS % 80.9 % (36.0-66.0); PLATELET COUNT, AUTOMATED 532 10^3/uL (150-450); RED BLOOD COUNT 4.76 10^6/uL (4.30-6.10); WHITE BLOOD COUNT 24.9 10^3/uL (4.0-10.0)
[2021-06-02 05:19] LABS: CALCIUM LEVEL 8.9 MG/DL (8.8-10.2); CREATININE FOR GFR 2.3 MG/DL (0.70-1.30); GLOMERULAR FILTRATION RATE 29.7 (>42); POTASSIUM SERUM 4.3 MEQ/L (3.5-5.1)
[2021-06-02] MEDS: HumaLOG INSULIN (NovoLOG) PER UNIT SC SCH ×4 (07:30→21:00)
[2021-06-02] MEDS: hydrALAZINE 20MG/ML 1ML VIAL (J0360 PER 20MG) IV PRN ×2 (08:08→12:31)
[2021-06-02] MEDS ORDERED: PROMETHAZINE INJ 25 MG/ML VIAL (J2550) IV ONE (08:15)
[2021-06-02] MEDS ORDERED: NS 1,000 ML IV ONE ×3 (08:15→17:25)
--- NOTE | 2021-06-02 08:40 | REP ---
INDICATION: CHEST TUBE PLEURAL EFFUSION. COMPARISON: Comparison portable chest x-ray June 01, 2021. TECHNIQUE: Portable upright AP chest radiograph. FINDINGS: Right pleural drainage catheter remains in place in the right base. There is interval improvement in the right pleural effusion and improvement in the amount of aerated right lung. There is a small apical pleural air collection on the right and there is a somewhat nodular appearing pleural thickening along the right lateral chest wall. Interstitial markings are diffusely increased in the aerated right lung. The left lung remains clear. IMPRESSION: Improvement noted. Right-sided hydropneumothorax with right pleural drainage catheter in place. Pleural thickening. Interstitial disease in the throughout the aerated right lung. <Electronically signed by Myron Stuart > 06/02/21 [id number]
[2021-06-02] MEDS: METOPROLOL TARTRATE 100 MG TAB PO SCH ×2 (08:59→21:12)
[2021-06-02] MEDS: **hydrALAZINE** 50 MG TAB PO SCH (08:59)
[2021-06-02] MEDS: DOXYCYCLINE HYCLATE 100 MG in D5W MINI-BAG PLUS 100 ML IV SCH ×2 (09:40→21:52)
--- NOTE | 2021-06-02 12:04 | IPNPDOC ---
Subjective Date Seen The patient was seen on 06/02/21. Subjective Chief Complaint/HPI Patient seen and examined at bedside this morning. There were no overnight events. Approximately 200 cc of pleural fluid was drained over the last 2 shifts. Patient is comfortable laying in bed he denies any complaints. Objective Physical Examination General Exam: Positive: Alert, No Acute Distress Eye Exam: Positive: PERRLA, Conjunctiva & lids normal, EOMI; Negative: Sclera icteric ENT Exam: Positive: Atraumatic, Mucous membr. moist/pink, Pharynx Normal Neck Exam: Positive: Supple; Negative: JVD, thyromegaly Chest Exam: Positive: Clear to auscultation, Normal air movement, Other (There is right-sided chest tube in place attached to drainage device.) Heart Exam: Positive: Rate Normal, Regular Rhythm, Normal S1, Normal S2; Negative: Murmurs, Rubs Telemetry: Positive: No significant arrhythmia Abdomen Exam: Positive: Normal bowel sounds, Soft; Negative: Tenderness, Hepatospenomegaly Male Exam: Positive: Normal Genital Exam Extremity Exam: Positive: Normal pulses; Negative: Clubbing, Cyanosis, Edema Skin Exam: Positive: Nl turgor and temperature; Negative: Rash, Breakdown Neuro Exam: Positive: Normal Gait, Normal Speech, Cranial Nerves 3-12 NL, Reflexes 2+ Psych Exam: Positive: Mental status NL, Mood NL, Oriented x 3 RAD Interpretation STUDY: CXR (Improved right-sided pleural effusion, chest tube is in place) Assessment /Plan Assessment ASSESSMENT: 1. Large right-sided exudative pleural effusion s/p chest tube. Patient is asymptomatic. 90% on room air 2. Possibly Parapneumonic effusion, cant rule out malignant effusion 3. JIMBO on CKD likely prerenal PLAN: * CT chest noncontrast, keep chest tube in today * Follow-up results of pleural fluid analysis * Continue antibiotics for now until pleural fluid cultures return * Agree with IV fluid bolus * DVT prophylaxis * Will follow Plan/VTE VTE Prophylaxis Ordered?: Yes VS, I&O, 24H, Fishbone Vital Signs/I&O Vital Signs Date Time Temp Pulse Resp B/P (MAP) Pulse Ox O2 Delivery O2 Flow Rate FiO2 06/02/21 11:58 98.8 71 18 175/74 (107) 91 Room Air I&O- Last 24 Hours up to 6 AM 06/02/21 06:00 Intake Total 660 ml Output Total 3085 ml Balance -2425 ml Laboratory Data 24H LABS Laboratory Tests 2 06/01/21 16:37: Bedside Glucose (Misc Panel) 174H 06/01/21 20:58: Bedside Glucose (Misc Panel) 234H 06/02/21 04:01: Immature Granulocyte % (Auto) 2.6, Neutrophils (%) (Auto) 80.9H, Lymphocytes (%) (Auto) 10.3L, Monocytes (%) (Auto) 5.8, Eosinophils (%) (Auto) 0.0, Basophils (%) (Auto) 0.4, Neutrophils # (Auto) 20.1H, Lymphocytes # (Auto) 2.6, Monocytes # (Auto) 1.4H, Eosinophils # (Auto) 0.0, Basophils # (Auto) 0.1, Nucleated Red Blood Cells % (auto) 0.0, Anion Gap 12, Glomerular Filtration Rate 29.7L, Calcium Level 8.9, Magnesium Level 2.0, Lactate Dehydrogenase 224 06/02/21 11:48: Bedside Glucose (Misc Panel) 275H CBC/BMP Laboratory Tests 06/02/21 04:01 Microbiology Microbiology 06/01/21 Acid Fast Stain, Received Pending 06/01/21 Mycobacterial Culture, Received Pending 06/01/21 Fungal Smear, Received Pending 06/01/21 Fungal Culture, Received Pending 06/01/21 Gram Stain, Received Pending 06/01/21 Anaerobic Culture, Received Pending 06/01/21 Gram Stain - Final, Resulted 06/01/21 Body Fluid Culture, Resulted Pending 05/31/21 Blood Culture - Preliminary, Resulted No growth after 24 hours . All specim... 05/31/21 Respiratory Virus Panel (PCR) ([facility]) - Final, Complete HAMMAD GONZALEZ MD Jun 02, 2021 12:03
--- NOTE | 2021-06-02 12:04 | IPN ---
PROGRESS NOTE DATE: 06/02/2021 SUBJECTIVE: The patient complains of nausea, vomited at the bedside this morning. Creatinine is up to 2.8. The patient denies any pain at the chest tube site. He otherwise felt okay overnight, no complaints of chest pain, pressure, tightness, shortness of breath or dyspnea on exertion, no fever or chills overnight, has a cough productive of white sputum, unchanged from yesterday. OBJECTIVE: Vitals: Temperature 98.6, pulse 83, respiratory rate 18, blood pressure 152/69, 91% on room air. General: The patient is vomiting at the bedside, awake, alert and oriented to person, place and time, answering questions appropriately without conversational dyspnea, right-sided chest tube noted. Lungs: Diminished. Improved air entry bilaterally. Heart: S1, S2, sinus rhythm. Abdomen: Soft, nontender and nondistended. Extremities: No pitting edema. Laboratory data, microbiology, imaging studies have been reviewed and see the chart. ASSESSMENT AND PLAN: 76-year-old male with history of smoking, presented with large right pleural effusion with compression and collapse of the right lung, complained of dyspnea on exertion. IMPRESSION: 1. Large right loculated pleural effusion with lung collapse. [place] consulted for chest tube placement and management. Pleural fluid showed exudative pleural effusion. TONIA, cytology cultures have been sent. Await culture results, then discontinue antibiotics if negative. 2. Hypertensive urgency. The patient had been restarted back on her base home doses of lisinopril, metoprolol and Norvasc. Titrate for better blood pressure control. 3. Acute kidney injury most likely secondary to diuresis. Awaiting echocardiogram report. One liter of IV fluids today. 4. Acute kidney injury on chronic renal disease, stage 3. Hold off on patient's lisinopril while he is acute kidney injury, strict Is and Os, daily weights and avoid trigger nephrotoxins. 5. Tobacco abuse, COPD. Tobacco cessation counseling, nicotine patch. 6. Leukocytosis. Currently on ceftriaxone, doxycycline, await sputum culture results and pleural results. Blood cultures are negative. Coronavirus is negative.
--- NOTE | 2021-06-02 12:47 | REP ---
INDICATION: right pleural effusion. COMPARISON: Comparison CT study is from May 30, 2021. TECHNIQUE: Helical scanning is acquired. 3 mm axial images are generated. Coronal and sagittal MPR and coronal MIP images are generated. FINDINGS: In the interval since the May 30, 2021 study, a right pleural drainage catheter is been placed. There is a hydropneumothorax visible today. There is much less pleural fluid on the right. There is partial re-expansion of the right lung. There are patchy areas of consolidation in the right upper lobe moderate in degree. There is a somewhat rounded area of opacity in the right middle lobe distribution which may be pneumonia versus infiltrative mass. There is incomplete re-expansion of the right lung and a rounded area of opacity is seen in the right lower lobe as well. There is visceral and parietal pleural thickening and some pleural calcification is noted bilaterally as before. There is a soft tissue density in the inferior and medial pleural space on the right. This is different in shape than on the pre thoracostomy images and may be proteinaceous material such as clot. No endobronchial abnormality is seen. There is right retrocrural lymphadenopathy. A 2 cm right retrocrural lymph node is noted. In addition, there is Tatiana aortic retroperitoneal adenopathy at and just below the level of the left main renal artery in the upper abdomen. There is a left renal artery stent noted in place. No adrenal mass is seen. There is a cyst in the central liver measuring 2.1 cm in diameter. Gallstones are noted in the upper abdomen. The left lung remains well inflated. There is a noncalcified 6 mm pulmonary nodule in the left lower lobe. There is pleural thickening and pleuroparenchymal fibrosis in the left upper lobe. There is a 4 mm pulmonary nodule in the left upper lobe. A 3 mm pulmonary nodule is visible in the left lower lobe. There is a 2.3 cm radiolucency in the right scapula. There are numerous small radiolucent lesions with sclerotic margins distributed in the axial skeleton involving multiple thoracic vertebral bodies most prominently L1. Multiple sternal lesions are seen. These findings are suspicious for metastatic disease. There is a 2 cm enlarged node in the right retrocrural lymph node chain. There is upper abdominal retroperitoneal lymphadenopathy in the left periaortic region. There is a left renal artery stent noted in place. IMPRESSION: Improved hydropneumothorax on the right pleural space post tube thoracostomy. Incomplete re-expansion of the right lung with multiple upper, middle, and lower lobe opacities. Pleural soft tissue densities are present as well question clot versus pleural tumor deposits. There is evidence of metastatic bone disease and there is upper abdominal and retrocrural lymphadenopathy. <Electronically signed by Myron Stuart > 06/02/21 [id number]
[2021-06-02] MEDS ORDERED: **hydrALAZINE HCL** 25 MG TAB PO ONE (14:40)
--- NOTE | 2021-06-02 15:58 | ECHO ---
ECHOCARDIOGRAM DATE OF PROCEDURE: 06/02/2021 Age: Gender: Female Height: 168 cm Weight: 59 kg REFERRING PHYSICIAN: Turner Young INDICATION: Dyspnea, unspecified. MEASUREMENTS: 2D Measurements: Left atrium 3.5 cm Intraventricular septum 1.10 cm Posterior wall 1.18 cm Left ventricle diastole 3.4 cm Inferior vena cava 0.9 cm with normal respiratory variation. Doppler Measurements: No aortic stenosis No aortic regurgitation Trace mitral regurgitation No mitral stenosis No tricuspid regurgitation No pulmonic regurgitation Mitral E velocity 46.1 cm/sec Mitral A velocity 104 cm/sec Mitral deceleration time 309 msec MITRAL ANNULAR TISSUE DOPPLER: E prime septal 4.0 cm/sec E prime lateral 5.3 cm/sec DESCRIPTION: Rhythm was sinus. Image quality was fair. This was a 2D, M-mode, color flow Doppler and pulse wave Doppler and included mitral annular tissue Doppler. Study was performed with the patient supine. CONCLUSIONS: 1. Normal left ventricle internal dimensions and wall thickness. Hyperdynamic left ventricular (LV) systolic function. Left ventricular ejection fraction (LVEF) 75% by visual estimate. Grade 1 LV diastolic dysfunction (abnormal relaxation filling pattern). 2. Visual appearance of at least mild, possibly moderate left atrial dilatation by visual assessment. 3. Normal right ventricle size and systolic function. Normal right atrium size. Suggestive of normal pulmonary artery (PA) systolic pressure. Normal central venous pressure (CVP) (5-10 mmHg). 4. Mild aortic valve sclerosis of A3-cusp aortic valve. No aortic regurgitation or stenosis. 5. Otherwise normal appearing echocardiogram Doppler findings. Structurally and functionally normal mitral, tricuspid and pulmonic valves. No pericardial effusion.
[2021-06-02] MEDS: **hydrALAZINE HCL** 25 MG TAB PO SCH ×2 (17:46→23:16)
[2021-06-02 18:17] LABS: CREATININE FOR GFR 2.29 MG/DL (0.70-1.30); GLOMERULAR FILTRATION RATE 29.9 (>42); POTASSIUM SERUM 4.3 MEQ/L (3.5-5.1)
[2021-06-02] MEDS: NS 1,000 ML IV SCH (19:27)
--- NOTE | 2021-06-02 19:37 | REP ---
INDICATION: acute renal failure. COMPARISON: Comparison urinary tract sonography January 03, 2013. TECHNIQUE: Urinary tract ultrasound. FINDINGS: Scanning at the level of the urinary bladder shows no abnormality. Renal cortical echogenicity pattern is somewhat increased consistent with chronic medical renal disease. There is no evidence of hydronephrosis. There is a 1.4 cm cyst in the right mid kidney. There is also a 1.1 cm cyst in the right mid kidney. In the left kidney at the upper pole there is a 3.7 cm cyst and a 2.0 cm cyst. There is a 1.7 cm cyst in the left mid kidney. There is in addition, a heterogeneous solid appearing mass projecting from the lower pole of the left kidney measuring 5.7 x 6.2 x 4.8 cm. No Doppler flow is visible within the lesion on color Doppler interrogation. The right kidney measures 12.9 x 5.3 x 6.0 cm. Left renal dimensions are 12.6 x 7.9 x 5.8 cm. IMPRESSION: Increased renal cortical echogenicity pattern consistent with chronic medical renal disease. No hydronephrosis. Multiple bilateral cysts. There is also evidence of a mass projecting at the lower pole of the left kidney. This may be a metastatic lesion or other relatively avascular mass. Consider CT scanning for further evaluation. <Electronically signed by Myron Stuart > 06/02/211932
[2021-06-02] MEDS: cefTRIAXone SOD 2 GM in D5W MINI-BAG PLUS 50 ML IV SCH (21:13)
[2021-06-03] VITALS (7 sets, daily range): BP systolic 146–180; BP diastolic 61–76
[2021-06-03 05:30] LABS: BASO # 0.1 10^3/uL (0.0-0.2); BASO % 0.4 % (0.0-1.0); HEMATOCRIT 35.3 % (42.0-52.0); LYMPH # 2.1 10^3/uL (1.5-5.0); LYMPH % 9.2 % (24.0-44.0); MEAN CORPUSCULAR HEMOGLOBIN 27.4 pg (27.0-33.0); MEAN CORPUSCULAR HGB CONC 31.2 g/dl (32.0-36.5); MEAN CORPUSCULAR VOLUME 87.8 fl (80.0-96.0); MONO # 1.5 10^3/uL (0.0-0.8); MONO % 6.5 % (2.0-8.0); NEUTROPHILS # 18.4 10^3/uL (1.5-8.5); NEUTROPHILS % 81.3 % (36.0-66.0); PLATELET COUNT, AUTOMATED 458 10^3/uL (150-450); RED BLOOD COUNT 4.02 10^6/uL (4.30-6.10); WHITE BLOOD COUNT 22.6 10^3/uL (4.0-10.0)
[2021-06-03 05:42] LABS: CALCIUM LEVEL 7.9 MG/DL (8.8-10.2); CREATININE FOR GFR 2.37 MG/DL (0.70-1.30); GLOMERULAR FILTRATION RATE 28.7 (>42); MAGNESIUM LEVEL 1.7 MG/DL (1.8-2.4); POTASSIUM SERUM 4.3 MEQ/L (3.5-5.1)
[2021-06-03] MEDS: **hydrALAZINE HCL** 25 MG TAB PO SCH ×4 (06:23→23:49)
[2021-06-03] MEDS: NS 1,000 ML IV SCH (06:23)
[2021-06-03] MEDS: HumaLOG INSULIN (NovoLOG) PER UNIT SC SCH ×4 (07:30→20:07)
[2021-06-03] MEDS: METOPROLOL TARTRATE 100 MG TAB PO SCH ×2 (08:02→20:28)
--- NOTE | 2021-06-03 08:02 | REP ---
INDICATION: CHEST TUBE PLEURAL EFFUSION COMPARISON: 06/02/2021 TECHNIQUE: Portable AP view of the chest FINDINGS: Chest tube at the right base is in stable position. Right pleural based opacities including right apical cap as well as multifocal right-sided infiltrates remain essentially unchanged. Left hemithorax is stable with chronic appearing changes along the lateral aspect of the lower lung zone again noted. Cardiac silhouette is normal/stable. Skeletal structures are grossly intact. IMPRESSION: No significant change. Continued right-sided pleuroparenchymal opacities similar to prior examination. <Electronically signed by Michael Harmon > 06/03/21 [id number]
--- NOTE | 2021-06-03 08:40 | REPVR ---
PROCEDURE INFORMATION: Exam: CT Head Without Contrast Exam date and time: 06/03/2021 8:21 AM Age: 76 years old Clinical indication: Pain; Headache; Additional info: Malignant pleural effusion R/O mets TECHNIQUE: Imaging protocol: Computed tomography of the head without contrast. Radiation optimization: All CT scans at this facility use at least one of these dose optimization techniques: automated exposure control; mA and/or kV adjustment per patient size (includes targeted exams where dose is matched to clinical indication); or iterative reconstruction. COMPARISON: CT Head without contrast 05/31/2021 8:27 PM FINDINGS: Brain: I see no evidence of acute hemorrhage or acute territorial infarct. Moderate diffuse involutional changes and mild white matter hypodensity suggestive of small vessel disease again noted. No mass or focal edema on this noncontrast study. Vascular calcifications at the culien-cv-[id number]. Physiologic basal ganglia calcifications. Cerebral ventricles: No ventriculomegaly. Paranasal sinuses: Visualized sinuses are unremarkable. No fluid levels. Mastoid air cells: Visualized mastoid air cells are well aerated. Bones/joints: No lytic or blastic disease in the regional skeleton. No acute fracture line. Soft tissues: No subcutaneous lesions. IMPRESSION: Chronic appearing changes in the brain without acute abnormality or obvious mass on this noncontrast study. Electronically signed by: Timbo Hung On 06/03/2021 08:39:45 AM
--- NOTE | 2021-06-03 08:44 | REP ---
INDICATION: malignant pleural effusion r/o mets COMPARISON: Prior chest CT dated 06/02/2021. TECHNIQUE: Axial noncontrast images from the lung bases to the pubic symphysis with coronal and sagittal reformations. This CT examination was performed using the following dose reduction techniques: Automated exposure control, adjustment of mA and/or kv according to the patient's size, and use of iterative reconstruction technique. FINDINGS: Stable pigtail catheter in the right lung base with relatively stable complex multifocal hydropneumothorax and areas of parenchymal consolidation/mass. New small left pleural effusion is now identified in comparison to prior exam. Left kidney includes 6.3 cm heterogeneous mass consistent with neoplasm along with possible smaller neoplastic lesions, adjacent perinephric satellite lesions and significant adjacent retroperitoneal adenopathy surrounding the origin of the left renal artery and adjacent to the crossing left renal vein with conglomerate lymph nodes measuring roughly 3.9 cm maximal diameter. Liver again demonstrates 1.9 cm presumed cyst in the medial left lobe. No further obvious focal hepatic lesion identified by noncontrast evaluation. Spleen, pancreas, and bilateral adrenal glands appear relatively normal. Cholelithiasis. Right kidney demonstrates 2.4 cm anterior exophytic hypodensity suggesting cyst along with renovascular calcifications and chronic perinephric stranding. The enteric system is without obvious obstruction or acute inflammatory process. Scattered colonic diverticula noted without acute diverticulitis. Small fat containing periumbilical hernia measures 2 cm. Evaluation of the pelvis demonstrates evidence for prior prostatectomy and right anterior bladder diverticulum. No ascites. No free air. Musculoskeletal structures demonstrate innumerable osseous lytic and sclerotic lesions consistent with metastatic disease. IMPRESSION: 1. Findings most compatible with metastatic renal cell carcinoma. Primary lesion in the left kidney measures roughly 6.3 cm diameter with adjacent left renal mass lesion, perinephric satellite lesion, and associated adenopathy in the retroperitoneum at the level of the left renal hilum surrounding the origin of the left renal artery and crossing left renal vein. Osseous metastatic foci are also identified throughout the vertebra and pelvis. 2. Further nonacute findings as described above including presumed bilateral simple and complex renal cysts as well as cholelithiasis. 3. Known changes primarily involving the right lung and small new left pleural effusion. <Electronically signed by Michael Harmon > 06/03/21 [id number]
--- NOTE | 2021-06-03 08:54 | IPNPDOC ---
Subjective Date Seen The patient was seen on 06/03/21. Subjective Chief Complaint/HPI Patient seen and examined at bedside. There were no overnight events. The chest tube was clamped yesterday evening. This morning asked chest x-ray came back which is grossly unchanged from prior and the fluid did not recur. Patient denies any symptoms, no shortness of breath, no chest pain, no fever, no chills. Objective Physical Examination General Exam: Positive: Alert, No Acute Distress, Other (Laying in bed comfortably, 92% on room air) Eye Exam: Positive: PERRLA, Conjunctiva & lids normal, EOMI ENT Exam: Positive: Atraumatic, Mucous membr. moist/pink, Pharynx Normal Neck Exam: Positive: Supple; Negative: JVD, thyromegaly Chest Exam: Positive: Clear to auscultation, Normal air movement, Other (There is right-sided chest tube in place attached to drainage device.) Heart Exam: Positive: Rate Normal, Regular Rhythm, Normal S1, Normal S2; Negative: Murmurs, Rubs Telemetry: Positive: No significant arrhythmia Abdomen Exam: Positive: Normal bowel sounds, Soft; Negative: Tenderness, Hepatospenomegaly Male Exam: Positive: Normal Genital Exam Extremity Exam: Positive: Normal pulses; Negative: Clubbing, Cyanosis, Edema Skin Exam: Positive: Nl turgor and temperature; Negative: Rash, Breakdown Neuro Exam: Positive: Normal Gait, Normal Speech, Cranial Nerves 3-12 NL, Reflexes 2+ Psych Exam: Positive: Mental status NL, Mood NL, Oriented x [address] a/p IMPRESSION: 1. Findings most compatible with metastatic renal cell carcinoma. Primary lesion in the left kidney measures roughly 6.3 cm diameter with adjacent left renal mass lesion, perinephric satellite lesion, and associated adenopathy in the retroperitoneum at the level of the left renal hilum surrounding the origin of the left renal artery and crossing left renal vein. Osseous metastatic foci are also identified throughout the vertebra and pelvis. 2. Further nonacute findings as described above including presumed bilateral simple and complex renal cysts as well as cholelithiasis. 3. Known changes primarily involving the right lung and small new left pleural effusion. ct chest IMPRESSION: Improved hydropneumothorax on the right pleural space post tube thoracostomy. Incomplete re-expansion of the right lung with multiple upper, middle, and lower lobe opacities. Pleural soft tissue densities are present as well question clot versus pleural tumor deposits. There is evidence of metastatic bone disease and there is upper abdominal and retrocrural lymphadenopathy. Assessment /Plan Assessment ASSESSMENT: 1. Large right-sided exudative pleural effusion s/p chest tube. The lung did not reexpand so there is probably trapped lung. This is likely a malignant pleural effusion as there is evidence of 6.3 cm left renal mass lesion with associated abdominal pelvic adenopathy and mets to the pleura and bone. 2. Leukocytosis, likely reactive, doubt PNA or parapneumonic effusion, cultures negative and procal low 3. JIMBO on CKD likely prerenal PLAN: * Will remove chest tube today, need post pull CXR * Oncology consult * Follow-up results of pleural fluid cytology * Complete 7 day course of abx, can switch to PO vantin * DVT prophylaxis * Pulm will sign off, If pleural fluid recurs and patient becomes symptomatic will consider pleurx catheter placement * Outpatient pulmonary fup Plan/VTE VTE Prophylaxis Ordered?: Yes VS, I&O, 24H, [facility] Vital Signs/I&O Vital Signs Date Time Temp Pulse Resp B/P (MAP) Pulse Ox O2 Delivery O2 Flow Rate FiO2 06/03/21 08:02 166/72 06/03/21 08:00 98.0 73 20 91 Room Air I&O- Last 24 Hours up to 6 AM 06/03/21 06:00 Intake Total 4730 ml Output Total 421 ml Balance 4309 ml Laboratory Data 24H LABS Laboratory Tests 2 06/02/21 11:48: Bedside Glucose (Misc Panel) 275H 06/02/21 15:58: Bedside Glucose (Misc Panel) 247H 06/02/21 17:39: Anion Gap 13, Glomerular Filtration Rate 29.9L, Calcium Level 8.0L 06/02/21 20:00: Bedside Glucose (Misc Panel) 237H 06/03/21 05:10: Immature Granulocyte % (Auto) 2.6, Neutrophils (%) (Auto) 81.3H, Lymphocytes (%) (Auto) 9.2L, Monocytes (%) (Auto) 6.5, Eosinophils (%) (Auto) 0.0, Basophils (%) (Auto) 0.4, Neutrophils # (Auto) 18.4H, Lymphocytes # (Auto) 2.1, Monocytes # (Auto) 1.5H, Eosinophils # (Auto) 0.0, Basophils # (Auto) 0.1, Nucleated Red Blood Cells % (auto) 0.0, Anion Gap 13, Glomerular Filtration Rate 28.7L, Calcium Level 7.9L, Magnesium Level 1.7L CBC/BMP Laboratory Tests 06/02/21 17:39 06/03/21 05:10 Microbiology Microbiology 06/01/21 Acid Fast Stain, Received Pending 06/01/21 Mycobacterial Culture, Received Pending 06/01/21 Fungal Smear, Received Pending 06/01/21 Fungal Culture, Received Pending 06/01/21 Anaerobic Culture, Worksheet Pending 06/01/21 Gram Stain - Final, Resulted 06/01/21 Body Fluid Culture, Resulted Pending 05/31/21 Blood Culture - Preliminary, Resulted No Growth after 48 hours. All Specime... 05/31/21 Respiratory Virus Panel (PCR) ([facility]) - Final, Complete HAMMAD GONZALEZ MD Jun 03, 2021 08:54
[2021-06-03] MEDS: DOXYCYCLINE HYCLATE 100 MG in D5W MINI-BAG PLUS 100 ML IV SCH ×2 (10:17→21:44)
--- NOTE | 2021-06-03 11:03 | REP ---
INDICATION: Chest tube removal COMPARISON: 06/03/2021 at 7:26 a.m. TECHNIQUE: Portable AP view of the chest FINDINGS: Right-sided chest tube has been removed. Right-sided pleuroparenchymal changes including complex multifocal hydropneumothorax and multifocal infiltrates again noted and unchanged. Chronic appearing changes involving the periphery of the left lower lung zone remains stable. No new acute process identified IMPRESSION: Significant right-sided pleuroparenchymal changes remains stable. No new acute process appreciated. <Electronically signed by Michael Harmon > 06/03/21 105
--- NOTE | 2021-06-03 11:27 | IPN ---
PROGRESS NOTE DATE: 06/03/2021 SUBJECTIVE: Patient has developed acute kidney injury overnight with creatinine increasing to 2.37 from admission creatinine of 1.52. Chest tube is still in place with output of 2.6 liters out on 06/01/2021 and 106 overnight. Patient has had no fever, chills, no cough or shortness of breath. He has no pain at the chest tube site. Pleural fluid culture gram stain showed no organisms. Anaerobic culture is negative. Blood culture is negative. Patient continues to have leukocytosis but no fevers. PHYSICAL EXAMINATION: Temperature 98, pulse 73, respiratory rate 20, blood pressure 166/72, 91% on room air. Input and output: Input of 430, output of 306. Since midnight, input of 700, output of 200. Generally: Patient appears cachectic, frail appearing, no use of respiratory accessory muscles, no distress, no nasal flaring. Neck: No jugular venous distension (JVD). Right-sided chest tube noted. Lungs: Diminished, improved air entry. Heart: S1, S2, sinus rhythm. Abdomen: Soft, nontender, nondistended, positive bowel sounds times four quadrants. Extremities: No cyanosis, clubbing, or any pitting edema. Laboratory data, microbiology, imaging studies have been reviewed. ASSESSMENT AND PLAN: This is a 76-year-old male with history of over 50-pack years smoking, presents with large right pleural effusion, complains of shortness of breath, dyspnea on exertion, cough, without fever or chills, has a loculated right pleural effusion with compression and collapse of the right lung. IMPRESSION: 1. Large right loculated pleural effusion with lung collapse. [employer] has been consulted with chest tube placed. Appears to be exudative, most likely malignancy with history of smoking history. Would be stage IV if confirmed by cytology. Obtain CT abdomen and pelvis, bone scan, and CT of the head. Will need medical oncology referral and [id number] placement for chemotherapy once malignancy is confirmed. 2. Acute on chronic renal failure. Most likely hypovolemia secondary to recent large volume thoracentesis and Lasix diuresis for presumed fluid overload with heart failure due to elevated brain natriuretic peptide (BNP). Despite IV fluid hydration, patient has not had any significant response. Renal ultrasound shows questionable metastatic lesion to the kidneys. Nephrology has been consulted for help in medical management of patient's worsening renal failure. Urology consult if CT abdomen and pelvis shows metastatic lesion causing compression and renal failure. 3. Tobacco abuse, chronic obstructive pulmonary disease (COPD). Cessation counseling and nicotine patch have been given. 4. Leukocytosis. Currently still on ceftriaxone and doxycycline. Blood cultures are negative. Coronavirus is negative. May discontinue antibiotics if repeat procalcitonin is negative since cultures are negative.
[2021-06-03 12:13] LABS: INR 1.31; PROTHROMBIN TIME 16.7 SECONDS (12.7-14.5)
[2021-06-03 12:14] LABS: PARTIAL THROMBOPLASTIN TIME 30.2 SECONDS (25.9-37.0)
[2021-06-03] MEDS ORDERED: SODIUM BICARBONATE 8.4% INJ 50MEQ 50 ML VIAL As Ordered ONE (13:17)
[2021-06-03] MEDS ORDERED: LIDOCAINE 1% MDV 20ML VIAL As Ordered ONE (13:17)
[2021-06-03 14:08] LABS: ANTI DOUBLE STRAND-DNA AB <1 IU/mL (0-9); ANTINUCLEAR ANTIBODIES DIRECT Positive (Negative); RNP ANTIBODIES 1.4 AI (0.0-0.9); SJOGREN'S ANTI SS-A <0.2 AI (0.0-0.9); SJOGREN'S ANTI SS-B <0.2 AI (0.0-0.9); SMITH ANTIBODIES <0.2 AI (0.0-0.9)
--- NOTE | 2021-06-03 15:21 | REP ---
INDICATION: renal mass / renal biopsy. COMPARISON: None. TECHNIQUE: The procedure is performed by Aisha Hermosillo [facility], under the direct supervision of Dr. Stuart. The risks and benefits of the procedure were explained to the patient and informed consent was obtained both orally and written. Directly prior to the start of the procedure, a formal timeout was done in the exam room. The left Tatiana renal nodule was localized using CT guidance. Skin was prepped and draped in the usual sterile fashion. Ten ml of buffered lidocaine was used as a local anesthetic. FINDINGS: Using CT guidance a 17/18 gauge coaxial needle biopsy system was inserted and advanced into the nodule. Six core biopsy samples were obtained and sent to the lab. CT images obtained directly after the biopsy show no evidence of hematoma. After the appropriate amount of monitored convalescence the patient was discharged back to the unit. IMPRESSION: CT-guided left Tatiana renal mass biopsy. <Electronically signed by Aisha Hermosillo > 06/03/21 1512 <Electronically signed by Myron Stuart > 06/03/21 151
--- NOTE | 2021-06-03 15:23 | IPNPDOC ---
Date Seen The patient was seen on 06/03/21. Progress Note Per pulm, IR requested 3 x AFB sputum prior to biopsy. AFB x 3 ordered. However, [facility] already completed CT guided renal biopsy. plan: dc 3afb sputum check afb sputum x 1 as ordered 06/01/21 Per Nephrology, due to large renal mass, mostlikely metastatic renal cell ca w mets to pleura. await renal biopsy report and pleural fluid cytology. VS, I&O, 24H, [facility] Vital Signs/I&O Vital Signs Date Time Temp Pulse Resp B/P (MAP) Pulse Ox O2 Delivery O2 Flow Rate FiO2 06/03/21 12:56 97.8 62 20 180/72 (108) 92 Room Air I&O- Last 24 Hours up to 6 AM 06/03/21 06:00 Intake Total 4730 ml Output Total 421 ml Balance 4309 ml Laboratory Data 24H LABS Laboratory Tests 2 06/02/21 15:58: Bedside Glucose (Misc Panel) 247H 06/02/21 17:39: Anion Gap 13, Glomerular Filtration Rate 29.9L, Calcium Level 8.0L 06/02/21 20:00: Bedside Glucose (Misc Panel) 237H 06/03/21 05:10: Anion Gap 13, Glomerular Filtration Rate 28.7L, Calcium Level 7.9L, Immature Granulocyte % (Auto) 2.6, Neutrophils (%) (Auto) 81.3H, Lymphocytes (%) (Auto) 9.2L, Monocytes (%) (Auto) 6.5, Eosinophils (%) (Auto) 0.0, Basophils (%) (Auto) 0.4, Neutrophils # (Auto) 18.4H, Lymphocytes # (Auto) 2.1, Monocytes # (Auto) 1.5H, Eosinophils # (Auto) 0.0, Basophils # (Auto) 0.1, Nucleated Red Blood Cells % (auto) 0.0, Magnesium Level 1.7L 06/03/21 11:38: Bedside Glucose (Misc Panel) 245H 06/03/21 11:50: Prothrombin Time 16.7H, Prothromb Time International Ratio 1.31, Activated Partial Thromboplast Time 30.2 CBC/BMP Laboratory Tests 06/02/21 17:39 06/03/21 05:10 Microbiology Microbiology 06/01/21 Acid Fast Stain, Received Pending 06/01/21 Mycobacterial Culture, Received Pending 06/01/21 Fungal Smear, Received Pending 06/01/21 Fungal Culture, Received Pending 06/01/21 Anaerobic Culture - Final, Complete 06/01/21 Gram Stain - Final, Complete 06/01/21 Body Fluid Culture - Final, Complete 05/31/21 Blood Culture - Preliminary, Resulted No Growth after 48 hours. All Specime... 05/31/21 Respiratory Virus Panel (PCR) ([facility]) - Final, Complete JOHN MATOS MD Jun 03, 2021 15:23
[2021-06-03] MEDS ORDERED: D5W/0.45% SODIUM CHLORIDE 1,000 ML IV SCH (18:45)
[2021-06-03] MEDS: cefTRIAXone SOD 2 GM in D5W MINI-BAG PLUS 50 ML IV SCH (20:28)
[2021-06-04] VITALS (9 sets, daily range): BP systolic 138–198; BP diastolic 60–80
[2021-06-04] MEDS: **hydrALAZINE HCL** 25 MG TAB PO SCH (05:21)
[2021-06-04 05:41] LABS: BASO # 0.1 10^3/uL (0.0-0.2); BASO % 0.5 % (0.0-1.0); HEMOGLOBIN 11.7 g/dl (13.5-17.5); LYMPH # 1.4 10^3/uL (1.5-5.0); LYMPH % 8.2 % (24.0-44.0); MEAN CORPUSCULAR HEMOGLOBIN 27.1 pg (27.0-33.0); MEAN CORPUSCULAR HGB CONC 31.6 g/dl (32.0-36.5); MEAN CORPUSCULAR VOLUME 85.8 fl (80.0-96.0); MONO # 1.1 10^3/uL (0.0-0.8); MONO % 6.1 % (2.0-8.0); NEUTROPHILS # 14.3 10^3/uL (1.5-8.5); NEUTROPHILS % 82.9 % (36.0-66.0); PLATELET COUNT, AUTOMATED 451 10^3/uL (150-450); RED BLOOD COUNT 4.31 10^6/uL (4.30-6.10); WHITE BLOOD COUNT 17.3 10^3/uL (4.0-10.0)
[2021-06-04 06:11] LABS: CALCIUM LEVEL 7.9 MG/DL (8.8-10.2); CREATININE FOR GFR 2.05 MG/DL (0.70-1.30); MAGNESIUM LEVEL 1.8 MG/DL (1.8-2.4)
--- NOTE | 2021-06-04 06:58 | CR ---
CONSULTATION DATE: 06/03/2021 REQUESTING PHYSICIAN: Radha Shane MD REASON FOR CONSULTATION: Acute kidney injury superimposed on chronic kidney disease. HISTORY OF PRESENT ILLNESS: Mr. Perkins is a 76-year-old gentleman who is admitted to [facility] with shortness of breath. He was found to have left pleural effusion and had a chest tube placed on the right side. His chest tube has been now removed. He is also treated for congestive heart failure. The patient has developed worsening kidney function due to which nephrology consultation was requested today. During investigations, he had a CT scan of chest done which showed hydropneumothorax in the right pleural space, incomplete reexpansion of the right lung with multiple upper, middle and lower lobe opacities, pleural soft tissue densities as well as pleural tumor deposits, evidence of metastatic bone disease, upper abdominal and retropleural lymphadenopathy. Further workup for his metastatic disease is in progress. PAST MEDICAL HISTORY: 1. Type 2 diabetes. 2. Hypertension. 3. COPD. 4. Chronic kidney disease. 5. Chronic low back pain. 6. History of prostate cancer. 7. Dyslipidemia. 8. History of insomnia. 9. Pleural effusion and diastolic congestive heart failure. PAST SURGICAL HISTORY: 1. Angioplasty. 2. Stent placement. 3. Knee surgery. 4. Radical prostatectomy in 2016. PERSONAL AND SOCIAL HISTORY: Patient quit smoking one week ago. Denies any drug or alcohol use. FAMILY HISTORY: Father at age of 59 due to coronary artery disease. Mother is also of unknown causes. HOME MEDICATIONS: 1. Amlodipine 5 mg daily. 2. Aspirin 81 mg daily. 3. Atorvastatin 20 mg daily. 4. Chlorthalidone 25 mg daily. 5. Diphenhydramine 25 mg at bedtime. 6. Hydralazine 50 mg t.i.d. 7. Lisinopril 10 mg daily. 8. Loratadine 10 mg daily. 9. Metformin 100 mg b.i.d. 10. Metoprolol 100 mg b.i.d. 11. Trazodone 100 mg at bedtime. ALLERGIES: Patient has no known drug allergies. REVIEW OF SYSTEMS: Patient denies any fever or chills. He reports that he was sent to the hospital by his primary physician due to worsening labs. Ears, nose and throat are unremarkable. Cardiovascular system: Significant for shortness of breath but denies any chest pain. Respiratory system significant for pleural effusion and pleural tumors. He had a chest tube which has been removed today. GI system is negative for vomiting or diarrhea. system is negative for dysuria or hematuria. Endocrine system is significant for type 2 diabetes and hyperlipidemia. Psychosocial system: Significant for insomnia and no anxiety or depression. Neurological system is negative for seizures or stroke. Hematological system is significant for anemia. Skin is negative for rash or ulcers. PHYSICAL EXAMINATION: Temperature 99 degrees Fahrenheit. Heart is 60 per minute, respiratory rate 18 per minute. Blood pressure 168/74 mmHg and oxygen saturation 94%. He has mild facial edema and periorbital edema. Head is atraumatic. Pupils equal and reactive to light and sclera is anicteric. Ears, nose and throat are unremarkable. Heart exam reveals regular S-1 and S-2. Lungs have diminished breath sounds on the right side and scattered rhonchi. Abdomen is soft and bowel sounds are present. No palpable hepatosplenomegaly. Kidneys are not palpable. Extremities: Without any cyanosis or clubbing. Neurologically he is awake, alert and without a focal neurological deficit. LABORATORY DATA: On admission his BUN is 15, creatinine 1.55, sodium 138, potassium 5.6. Yesterday his creatinine went up to 2.3 and BUN 57 in the morning and 64 in the evening. This morning BUN is 71 and creatinine 2.37, glucose 259 and calcium 7.9. Sodium 141 and potassium 4.3. INR is 1.4 today. His TONIA screen was positive but anti-DNA immunoglobulin negative. His pleural fluid showed 195 WBCs and 90% were mononuclear cells and only 9% polymorphs. PROBLEMS: 1. Acute kidney superimposed on chronic kidney disease. Probably this is related to change in volume status. He had his right pleural effusion drained with chest tube and also had diuresis. Currently his diuretic is off. Clinically he does not seem to have any evidence of volume overload and pleural effusion was most likely not related to congestive heart failure. His echocardiogram did show evidence for diastolic congestive heart failure. I agree with stopping diuretics and will allow him to have normal oral fluid intake. They also agree to stop his TUSHAR inhibitor and metformin. After bag of IV fluid runs out, then IV fluid can be stopped. 2. Metabolic acidosis. He has very mild metabolic acidosis which does not need any intervention at this point and is likely to improve as his kidney function improves. 3. Metastatic disease. Patient has widespread metastasis, lymph nodes and bony mets. I strongly recommend to get a tissue biopsy in order to make a diagnosis whether it is of lung origin or kidney origin or some other area as he has multiple masses in the pleural space and also has a mass in his left kidney. He does have a history of prostate cancer for which he had a radical prostatectomy in 2016 so I do not feel that this is metastatic prostate cancer. Thank you for involving me in the care of Mr. Perkins. I will follow him along with you.
[2021-06-04] MEDS: GLIMEPIRIDE 2 MG TAB PO SCH ×3 (07:03→16:36)
[2021-06-04] MEDS: HumaLOG INSULIN (NovoLOG) PER UNIT SC SCH (07:30)
--- NOTE | 2021-06-04 07:46 | REP ---
INDICATION: CHEST TUBE PLEURAL EFFUSION. COMPARISON: June 03, 2021. TECHNIQUE: Portable upright AP chest radiograph. FINDINGS: There is a slight increase in pleural thickening and pleural angle blunting on the right compared to yesterday's chest radiograph. The right chest tube is been removed. Left lung is unchanged. Rounded areas of persistent lung opacity are again seen in the right perihilar region. IMPRESSION: Slight increase in pleural thickening on the right. <Electronically signed by Myron Stuart > 06/04/21 0733
[2021-06-04] MEDS ORDERED: HumaLOG INSULIN (NovoLOG) PER UNIT SC ONE (09:05)
[2021-06-04] MEDS: METOPROLOL TARTRATE 100 MG TAB PO SCH ×2 (09:24→20:35)
[2021-06-04] MEDS: DOXYCYCLINE HYCLATE 100 MG in D5W MINI-BAG PLUS 100 ML IV SCH ×2 (10:20→21:45)
[2021-06-04] MEDS ORDERED: IPRATROPIUM 0.5MG/ALBUTEROL 2.5MG INH SOL UD 3ML (DUONEB) NEB PRN (11:30)
[2021-06-04] MEDS: **hydrALAZINE** 50 MG TAB PO SCH ×2 (15:24→20:36)
--- NOTE | 2021-06-04 15:37 | REP ---
INDICATION: malignant pleural effusion r/o bone mets. COMPARISON: None. TECHNIQUE/RADIOTRACER AND DOSE: After the intravenous administration of 22.0 mCi of technetium 99 M MDP a total body bone scan was obtained. FINDINGS: There is increased activity in the right pedicle and right half of L1 vertebral body. There is a focus of abnormal increased activity seen in the proximal left humeral diaphysis. There is a small focus of increased activity seen in the right scapular region. There is a small focus of increased activity in the left foot 1st digit region. There is a degenerative type uptake pattern seen in the cervical spine. IMPRESSION: 1. Increased activity seen in the spine, left humerus, and right scapula, as described above, and suspicious for metastatic disease. 2. Increased activity seen in the left foot and cervical spine likely degenerative in nature. <Electronically signed by Srini Baeza > 06/04/21 1116
--- NOTE | 2021-06-04 20:32 | IPN ---
PROGRESS NOTE DATE: 06/04/2021 SUBJECTIVE: Mr. Perkins was seen this morning on his bedside. He is feeling about the same. Nursing staff reports that he has not been interested in eating. He does not like the hospital food, but denies any abdominal pain or nausea. PHYSICAL EXAMINATION: VITALS: Temperature 97.4 degrees Fahrenheit, heart rate 84 per minute, respiratory rate 18 per minute, blood pressure 170/60 mmHg, oxygen saturation 93% on room air. HEENT: Head is atraumatic. Neck supple and JVD not abnormally elevated. HEART: Sounds are regular. LUNGS: Diminished breath sounds on the right side with some rhonchi. ABDOMEN: Soft and nontender, and bowel sounds are normal. EXTREMITIES: Without any cyanosis or clubbing. Left upper extremity has mild edema. LABORATORY STUDIES: Today's labs show WBC count down to 17.3, hemoglobin 11.7 and hematocrit 37. Sodium 139, potassium 4.0, CO2 18, BUN 72 and creatinine 2.05. Glucose 354 and calcium 7.9. PROBLEMS: 1. Acute kidney injury superimposed on chronic kidney disease: Kidney function has started to improve. Patient is being encouraged to increase his oral intake of fluid. He is currently off diuretics. 2. Metabolic acidosis: His acidosis seems to be worsening. I am going to start him on oral sodium bicarbonate tablets 650 mg b.i.d. 3. Anemia: His anemia is stable and does not need any urgent intervention. 4. Congestive heart failure: His volume status is well compensated and maybe slightly over diuresed. He has been off diuretics. 5. Metastatic disease: Patient had wide spread metastases and he had a biopsy done yesterday under CT guidance, results are pending.
[2021-06-04] MEDS: SODIUM BICARBONATE 325 MG TAB PO SCH (20:33)
[2021-06-04] MEDS: cefTRIAXone SOD 2 GM in D5W MINI-BAG PLUS 50 ML IV SCH (20:37)
[2021-06-05] VITALS: BP 171/76
[2021-06-05 03:59] VITALS: BP 177/80
[2021-06-05 06:09] LABS: BASO # 0.1 10^3/uL (0.0-0.2); BASO % 0.3 % (0.0-1.0); HEMATOCRIT 39.7 % (42.0-52.0); HEMOGLOBIN 12.8 g/dl (13.5-17.5); LYMPH # 1.8 10^3/uL (1.5-5.0); LYMPH % 8.9 % (24.0-44.0); MEAN CORPUSCULAR HEMOGLOBIN 27.2 pg (27.0-33.0); MEAN CORPUSCULAR HGB CONC 32.2 g/dl (32.0-36.5); MEAN CORPUSCULAR VOLUME 84.5 fl (80.0-96.0); MONO # 1.3 10^3/uL (0.0-0.8); MONO % 6.3 % (2.0-8.0); NEUTROPHILS # 16.9 10^3/uL (1.5-8.5); NEUTROPHILS % 82.8 % (36.0-66.0); PLATELET COUNT, AUTOMATED 434 10^3/uL (150-450); WHITE BLOOD COUNT 20.4 10^3/uL (4.0-10.0)
[2021-06-05 06:30] LABS: CALCIUM LEVEL 8.4 MG/DL (8.8-10.2); CREATININE FOR GFR 1.65 MG/DL (0.70-1.30); GLOMERULAR FILTRATION RATE 43.6 (>42); POTASSIUM SERUM 3.5 MEQ/L (3.5-5.1)
--- NOTE | 2021-06-05 08:08 | REP ---
INDICATION: CHEST TUBE PLEURAL EFFUSION. COMPARISON: Comparison chest x-ray June 04, 2021. TECHNIQUE: Portable upright AP chest radiograph. FINDINGS: Is pleural thickening and blunting of the right lateral pleural angle persist. There is right lower lobe perihilar parenchymal opacity unchanged from yesterday's radiograph. There is some pleuroparenchymal fibrosis in the periphery of the left lung as before. No new infiltrate. Heart is not enlarged. IMPRESSION: No significant change from yesterday's radiograph. <Electronically signed by Myron Stuart > 06/05/21 [id number]
[2021-06-05] MEDS ORDERED: POTASSIUM CHLORIDE 10MEQ SR TABLET PO ONE (08:15)
[2021-06-05 08:18] VITALS: BP 190/78
[2021-06-05] MEDS: **hydrALAZINE** 50 MG TAB PO SCH (08:19)
[2021-06-05] MEDS: GLIMEPIRIDE 2 MG TAB PO SCH (08:19)
[2021-06-05] MEDS: METOPROLOL TARTRATE 100 MG TAB PO SCH (08:19)
[2021-06-05 08:22] VITALS: BP 190/78
[2021-06-05] MEDS: SODIUM BICARBONATE 325 MG TAB PO SCH (08:39)
[2021-06-05] MEDS ORDERED: SPIRONOLACTONE 12.5MG PER 1/2 TABLET PO SCH (09:00)
[2021-06-05] MEDS ORDERED: DOXY-350 PO (10:24)
[2021-06-05] MEDS ORDERED: AMAR1TAB5 PO (10:24)
[2021-06-05] MEDS ORDERED: CEFD1CAP8 PO (10:24)
[2021-06-05] MEDS ORDERED: SODI325T9 PO (10:24)
[2021-06-05] MEDS ORDERED: HYDR-3911 PO (10:24)
--- NOTE | 2021-06-05 10:25 | IPNPDOC ---
Subjective Date Seen The patient was seen on 06/04/21. Subjective Chief Complaint/HPI Does not of any offer any complaints this morning. Says that he does not have any appetite and so did not have any breakfast. Denies any shortness of breath. No fever or chills. Objective Physical Examination General Exam: Positive: Alert, Cooperative, No Acute Distress Eye Exam: Positive: PERRLA, Conjunctiva & lids normal, EOMI ENT Exam: Positive: Atraumatic, Mucous membr. moist/pink, Pharynx Normal Neck Exam: Positive: Supple; Negative: JVD, thyromegaly Chest Exam: Positive: Other (Diminished breath sounds on the right); Negative: Rales, Rhonchi, Wheezing Heart Exam: Positive: Rate Normal, Regular Rhythm, Normal S1, Normal S2; Negative: Murmurs, Rubs Abdomen Exam: Positive: Normal bowel sounds, Soft; Negative: Tenderness Male Exam: Positive: Normal Genital Exam Extremity Exam: Negative: Clubbing, Cyanosis, Edema Psych Exam: Positive: Oriented x 3 Assessment /Plan Assessment This is a 76-year-old male with history of over 50-pack years smoking, presented with complains of shortness of breath, dyspnea on exertion, cough, without fever or chills, found to have a loculated right pleural effusion with compression and collapse of the right lung. Patient had thoracocentesis of the right however the right the lung did not expand completely so it was felt that patient has an trapped lung. Exudative right-sided pleural effusion large right loculated pleural effusion with lung collapse. Status post chest tube drainage without complete inflation of the lungs likely has trapped lungs. Pleural fluid cytology is negative for malignancy. Possible pneumonia versus mass in the right upper lobe middle lobe Continue with ceftriaxone and doxycycline Right renal mass seen in CT abdomen and pelvis With abdominal lymphadenopathy Status post right renal biopsy on 06/03/2021 Will get a bone scan on 06/04/2021 Will refer to oncology JIMBO on CKD Baseline creatinine 1.5-1.6 Slight improvement in creatinine today at 2 IV fluids have been stopped and diuretics have been stopped. Chronic obstructive pulmonary disease (COPD). Asymptomatic We will place on DuoNebs as needed Diabetes Lispro as per sliding scale Metformin stopped Hypertension with hypertensive urgency on presentation On amlodipine, hydralazine, metoprolol TUSHAR inhibitor held due to JIMBO on CKD Leukocytosis. Procalcitonin is not elevated Likely due to malignancy History of prostate cancer prostate cancer Status post robotic assisted radical prostatectomy in 2016 Dyslipidemia Insomnia Angioplasty kidneys and stent placement Plan/VTE VTE Prophylaxis Ordered?: Yes VS, I&O, 24H, Fishbone Vital Signs/I&O Vital Signs Date Time Temp Pulse Resp B/P (MAP) Pulse Ox O2 Delivery O2 Flow Rate FiO2 06/04/21 09:24 74 180/70 06/04/21 08:00 97.6 20 94 Room Air I&O- Last 24 Hours up to 6 AM 06/04/21 05:59 Intake Total 2050 ml Output Total 1287 ml Balance 763 ml Laboratory Data 24H LABS Laboratory Tests 2 06/03/21 11:38: Bedside Glucose (Misc Panel) 245H 06/03/21 11:50: Prothrombin Time 16.7H, Prothromb Time International Ratio 1.31, Activated Par tial Thromboplast Time 30.2 06/03/21 16:56: Bedside Glucose (Misc Panel) 241H 06/03/21 20:07: Bedside Glucose (Misc Panel) 227H 06/04/21 05:18: Immature Granulocyte % (Auto) 2.3, Neutrophils (%) (Auto) 82.9H, Lymphocytes (%) (Auto) 8.2L, Monocytes (%) (Auto) 6.1, Eosinophils (%) (Auto) 0.0, Basophils (%) (Auto) 0.5, Neutrophils # (Auto) 14.3H, Lymphocytes # (Auto) 1.4L, Monocytes # (Auto) 1.1H, Eosinophils # (Auto) 0.0, Basophils # (Auto) 0.1, Nucleated Red Blood Cells % (auto) 0.0, Anion Gap 14, Glomerular Filtration Rate 34.0L, Francis cium Level 7.9L, Magnesium Level 1.8 CBC/BMP Laboratory Tests 06/04/21 05:18 Microbiology Microbiology 06/01/21 Acid Fast Stain, Received Pending 06/01/21 Mycobacterial Culture, Received Pending 06/01/21 Fungal Smear, Received Pending 06/01/21 Fungal Culture, Received Pending 06/01/21 Anaerobic Culture - Final, Complete 06/01/21 Gram Stain - Final, Complete 06/01/21 Body Fluid Culture - Final, Complete 05/31/21 Blood Culture - Preliminary, Resulted No Growth after 72 hours. All specime... 05/31/21 Respiratory Virus Panel (PCR) ([facility]) - Final, Complete Carrie Hendrickson MD Jun 04, 2021 11:42
[2021-06-05 10:45] VITALS: BP 176/74
--- NOTE | 2021-06-05 10:50 | IPN ---
PROGRESS NOTE DATE: 06/05/2021 SUBJECTIVE: Mr. Perkins is seen this morning on his bedside. He is laying in his bed, and remains disinterested in any food. He denies any abdominal pain, vomiting or diarrhea. He is drinking some liquids but not eating much. OBJECTIVE: VITAL SIGNS: Temperature 97.3 degrees Fahrenheit, heart rate 80 per minute and respiratory rate 16 per minute. Blood pressure is 190/78 mmHg and oxygen saturation is 93% on room air. HEENT: Head is atraumatic. NECK: Supple. JVD is not abnormally elevated. HEART: Heart sounds are regular. LUNGS: Diminished breath sounds on the right side. Left sided sounds are almost clear. ABDOMEN: Soft and nontender. Bowel sounds are normal. EXTREMITIES: Without any cyanosis or clubbing. NEUROLOGIC: He has no focal deficit. LABORATORY DATA: Today's labs shows WBC of 20.4, hemoglobin of 12.8 and hematocrit 39.7, platelets are 434,000. Sodium is 142, potassium is 3.5, CO2 19, BUN 17 and creatinine 1.65. PROBLEMS: 1. Acute renal failure, most likely related to over-diuresis. Kidney function is gradually improving and he remains off diuretic. 2. Metabolic acidosis. No significant change. He remains on sodium bicarbonate and should continue the same until his acidosis is corrected. I hope that with improving kidney function his acidosis will improve within the next couple of days. 3. Hypokalemia, potassium level is 3.5 today and I am giving him one dose of potassium chloride 20 mEq. 4. Widespread metastatic lesions. Patient had a biopsy done and the results are pending. He will need further follow-up and evaluation by Oncology. 5. Hypertension. Blood pressure is quite high this morning. He is currently on hydralazine 100 mg t.i.d., amlodipine 10 mg daily and metoprolol 100 mg daily. I will recommend to avoid TUSHAR inhibitor or angiotensin receptor keanu. We can probably resume low dose diuretic for blood pressure control.
[2021-06-05] MEDS ORDERED: ALDA25TA2 PO (12:53)
--- NOTE | 2021-06-05 14:38 | DS.PDOC ---
Discharge Summary General Date of Admission May 31, 2021 at 15:59 Date of Discharge 06/05/21 Discharge Summary PROCEDURES PERFORMED DURING STAY: CT-guided left perirenal mass biopsy Right chest tube placement and removal DISCHARGE DIAGNOSES: Metastatic renal cell carcinoma with mets to lung and bone Right pleural effusion with entrapped lung Right-sided pneumonia JIMBO on CKD Metabolic acidosis Persistent leukocytosis Secondary diagnosis Diabetes, hypertension, CKD stage III, COPD, history of prostate cancer status post radical prostatectomy, dyslipidemia, history of angioplasty of the kidneys and stent placement COMPLICATIONS/CHIEF COMPLAINT: Pleural Effusion On Right. HOSPITAL COURSE: This is a 76-year-old male with history of over 50-pack years smoking, presented with complains of shortness of breath for 3 weeks associated with, cough, without fever or chills, found to have a loculated right pleural effusion with compression and collapse of the right lung. Patient had thoracocentesis of the right however the right the lung did not expand completely so it was felt that patient has an trapped lung. The pleural effusion was exudative but negative for any infection and cytology was negative for malignant cells. CT chest of the lung showed right patchy areas of consolidation in the right upper lobe with an area of rounded opacity in the right middle lobe and right lower lobe suspicious for round pneumonia versus infiltrative mass. Patient was empirically treated for pneumonia. The right lung opacity was suspicious for malignancy so further investigation was done with the abdominal and pelvis CT scan and a bone scan. CT abdomen and pelvis showed 6.3 cm heterogeneous mass in the left kidney along with many satellite lesions and retroperitoneal lymphadenopathy suggestive of metastatic renal cell carcinoma. Patient had a CT-guided biopsy of the left renal mass done on 021. Bone scan as below is suggestive of metastatic disease to spine, left humerus, right scapula. Metastatic renal cell carcinoma of the left Left heterogeneous renal mass seen in CT abdomen and pelvis with perirenal satellite lesions and abdominal lymphadenopathy Status post left renal biopsy on 06/03/2021 bone scan on 06/04/2021 positive for metastatic disease Biopsy results are pending Referral to oncology in 1 week. Spoke with PCP Dr. Venu Richey and he is going to arrange for oncology referral. Exudative right-sided pleural effusion large right loculated pleural effusion with lung collapse. Status post pigtail drainage without complete inflation of the lungs likely has trapped lungs. Pleural fluid cytology is negative for malignancy. Possible round pneumonia versus mass in the right upper lobe middle lobe Continue with cefdinir and doxycycline to finish 7 days of treatment JIMBO on CKD Baseline creatinine 1.5-1.6 Creatinine almost at baseline Patient started on bicarb tablets for persistent metabolic acidosis Started on small dose of Aldactone 12.5 mg daily Follow-up with Dr. Fuller in 1 week Chronic obstructive pulmonary disease (COPD). Asymptomatic Diabetes Lispro as per sliding scale Metformin stopped due to renal failure. Started on glimepiride 2 mg twice daily Hypertension with hypertensive urgency on presentation On amlodipine, hydralazine, metoprolol TUSHAR inhibitor stopped due to JIMBO on CKD Leukocytosis. Procalcitonin is not elevated. Did get empirically treated for pneumonia without any improvement in leukocytosis Likely due to malignancy History of prostate cancer prostate cancer Status post robotic assisted radical prostatectomy in 2016 Dyslipidemia Insomnia Angioplasty kidneys and stent placement DISCHARGE MEDICATIONS: Please see below. ALLERGIES: Please see below. PHYSICAL EXAMINATION ON DISCHARGE: General Exam: Positive: Alert, Cooperative, No Acute Distress Eye Exam: Positive: PERRLA, Conjunctiva & lids normal, EOMI ENT Exam: Positive: Atraumatic, Mucous membr. moist/pink, Pharynx Normal Neck Exam: Positive: Supple; Negative: JVD, thyromegaly Chest Exam: Positive: Other (Diminished breath sounds on the right); Negative: Rales, Rhonchi, Wheezing Heart Exam: Positive: Rate Normal, Regular Rhythm, Normal S1, Normal S2; Negative: Murmurs, Rubs Abdomen Exam: Positive: Normal bowel sounds, Soft; Negative: Tenderness Male Exam: Positive: Normal Genital Exam Extremity Exam: Negative: Clubbing, Cyanosis, Edema Psych Exam: Positive: Oriented x 3 LABORATORY DATA: Please see below. IMAGING: CT chest 06/02/2021 FINDINGS: In the interval since the May 30, 2021 study, a right pleural drainage catheter is been placed. There is a hydropneumothorax visible today. There is much less pleural fluid on the right. There is partial re-expansion of the right lung. There are patchy areas of consolidation in the right upper lobe moderate in degree. There is a somewhat rounded area of opacity in the right middle lobe distribution which may be pneumonia versus infiltrative mass. There is incomplete re-expansion of the right lung and a rounded area of opacity is seen in the right lower lobe as well. There is visceral and parietal pleural thickening and some pleural calcification is noted bilaterally as before. There is a soft tissue density in the inferior and medi al pleural space on the right. This is different in shape than on the pre thoracostomy images and may be proteinaceous material such as clot. No endobronchial abnormality is seen. There is right retrocrural lymphadenopathy. A 2 cm right retrocrural lymph node is noted. In addition, there is Tatiana aortic retroperitoneal adenopathy at and just below the level of the left main renal artery in the upper abdomen. There is a left renal artery stent noted in place. No adrenal mass is seen. There is a cyst in the central liver measuring 2.1 cm in diameter. Gallstones are noted in the upper abdomen. The left lung remains well inflated. There is a noncalcified 6 mm pulmonary nodule in the left lower lobe. There is pleural thickening and pleuroparenchymal fibrosis in the left upper lobe. There is a 4 mm pulmonary nodule in the left upper lobe. A 3 mm pulmonary nodule is visible in the left lower lobe. There is a 2.3 cm radiolucency in the right scapula. There are numerous small radiolucent lesions with sclerotic margins distributed in the axial skeleton involving multiple thoracic vertebral bodies most prominently L1. Multiple sternal lesions are seen. These findings are suspicious for metastatic disease. There is a 2 cm enlarged node in the right retrocrural lymph node chain. There is upper abdominal retroperitoneal lymphadenopathy in the left periaortic region. There is a left renal artery stent noted in place. IMPRESSION: Improved hydropneumothorax on the right pleural space post tube thoracostomy. Incomplete re-expansion of the right lung with multiple upper, middle, and lower lobe opacities. Pleural soft tissue densities are present as well question clot ve rsus pleural tumor deposits. There is evidence of metastatic bone disease and there is upper abdominal and retrocrural lymphadenopathy. CT abdomen and pelvis on 06/02/2021 FINDINGS: Stable pigtail catheter in the right lung base with relatively stable complex multifocal hydropneumothorax and areas of parenchymal consolidation/mass. New small left pleural effusion is now identified in comparison to prior exam. Left kidney includes 6.3 cm heterogeneous mass consistent with neoplasm along with possible smaller neoplastic lesions, adjacent perinephric satellite lesions and significant adjacent retroperitoneal adenopathy surrounding the origin of the left renal artery and adjacent to the crossing left renal vein with conglomerate lymph nodes measuring roughly 3.9 cm maximal diameter. Liver again demonstrates 1.9 cm presumed cyst in the medial left lobe. No further obvious focal hepatic lesion identified by noncontrast evaluation. Spleen, pancreas, and bilateral adrenal glands appear relatively normal. Cholelithiasis. Right kidney demonstrates 2.4 cm anterior exophytic hypodensity suggesting cyst along with renovascular calcifications and chronic perinephric stranding. The enteric system is without obvious obstruction or acute inflammatory process. Scattered colonic diverticula noted without acute diverticulitis. Small fat containing periumbilical hernia measures 2 cm. Evaluation of the pelvis demonstrates evidence for prior prostatectomy and right anterior bladder diverticulum. No ascites. No free air. Musculoskeletal structures demonstrate innumerable osseous lytic and sclerotic lesions consistent with metastatic disease. IMPRESSION: 1. Findings most compatible with metastatic renal cell carcinoma. Primary lesion in the left kidney measures roughly 6.3 cm diameter with adjacent left renal mass lesion, perinephric satellite lesion, and associated adenopathy in the retroperitoneum at the level of the left renal hilum surrounding the origin of the left renal artery and crossing left renal vein. Osseous metastatic foci are also identified throughout the vertebra and pelvis. 2. Further nonacute findings as described above including presumed bilateral simple and complex renal cysts as well as cholelithiasis. 3. Known changes primarily involving the right lung and small new left pleural effusion. Chest x-ray 06/03/2021 Right-sided chest tube has been removed. Right-sided pleuroparenchymal changes including complex multifocal hydropneumothorax and multifocal infiltrates again noted and unchanged. Chronic appearing changes involving the periphery of the left lower lung zone remains stable. No new acute process identified IMPRESSION: Significant right-sided pleuroparenchymal changes remains stable. No new acute process appreciated. Bone scan There is increased activity in the right pedicle and right half of L1 vertebral body. There is a focus of abnormal increased activity seen in the proximal left humeral diaphysis. There is a small focus of increased activity seen in the right scapular region. There is a small focus of increased activity in the left foot 1st digit region. There is a degenerative type uptake pattern seen in the cervical spine. IMPRESSION: 1. Increased activity seen in the spine, left humerus, and right scapula, as described above, and suspicious for metastatic disease. 2. Increased activity seen in the left foot and cervical spine likely degenerative in nature. Renal ultrasound FINDINGS: Scanning at the level of the urinary bladder shows no abnormality. Renal cortical echogenicity pattern is somewhat increased consistent with chronic medical renal disease. There is no evidence of hydronephrosis. There is a 1.4 cm cyst in the right mid kidney. There is also a 1.1 cm cyst in the right mid kidney. In the left kidney at the upper pole there is a 3.7 cm cyst and a 2.0 cm cyst. There is a 1.7 cm cyst in the left mid kidney. There is in addition, a heterogeneous solid appearing mass projecting from the lower pole of the left kidney measuring 5.7 x 6.2 x 4.8 cm. No Doppler flow is visible within the lesion on color Doppler interrogation. The right kidney measures 12.9 x 5.3 x 6.0 cm. Left renal dimensions are 12.6 x 7.9 x 5.8 cm. IMPRESSION: Increased renal cortical echogenicity pattern consistent with chronic medical renal disease. No hydronephrosis. Multiple bilateral cysts. There is also evidence of a mass projecting at the lower pole of the left kidney. This may be a metastatic lesion or other relatively avascular mass. Consider CT scanning for further evaluati on. ACTIVITY: [As tolerated]. DIET: Carb consistent DISCHARGE PLAN: Home DISPOSITION: . DISCHARGE INSTRUCTIONS: Follow-up with PMD in 1 week Follow-up with renal in 1 week Follow-up with pulmonary in 1 week ITEMS TO FOLLOWUP ON ON OUTPATIENT: Follow-up renal biopsy result Need to be urgently referred to oncology after biopsy result is available DISCHARGE CONDITION: [Stable]. TIME SPENT ON DISCHARGE: 40 minutes. Vital Signs/I&Os Vital Signs Date Time Temp Pulse Resp B/P (MAP) Pulse Ox O2 Delivery O2 Flow Rate FiO2 06/05/21 10:45 65 176/74 (108) 06/05/21 08:18 97.3 16 93 Room Air I&O- Last 24 Hours up to 6 AM 06/05/21 06:00 Intake Total 570 ml Output Total 1451 ml Balance -881 ml Laboratory Data Labs 24H Laboratory Tests 2 06/04/21 16:38: Bedside Glucose (Misc Panel) 266H 06/05/21 05:46: Immature Granulocyte % (Auto) 1.7, Neutrophils (%) (Auto) 82.8H, Lymphocytes (%) (Auto) 8.9L, Monocytes (%) (Auto) 6.3, Eosinophils (%) (Auto) 0.0, Basophils (%) (Auto) 0.3, Neutrophils # (Auto) 16.9H, Lymphocytes # (Auto) 1.8, Monocytes # (Auto) 1.3H, Eosinophils # (Auto) 0.0, Basophils # (Auto) 0.1, Nucleated Red B lood Cells % (auto) 0.0, Anion Gap 11, Glomerular Filtration Rate 43.6, Calcium Level 8.4L, Magnesium Level 2.0 CBC/BMP Laboratory Tests 06/05/21 05:46 FSBS Laboratory Tests Test 06/04/21 16:38 Range/Units Bedside Glucose (Misc Panel) 266 83-110 MG/DL Microbiology Microbiology 06/01/21 Acid Fast Stain, Received Pending 06/01/21 Mycobacterial Culture, Received Pending 06/01/21 Fungal Smear, Received Pending 06/01/21 Fungal Culture, Received Pending 06/01/21 Anaerobic Culture - Final, Complete 06/01/21 Gram Stain - Final, Complete 06/01/21 Body Fluid Culture - Final, Complete 05/31/21 Blood Culture - Preliminary, Resulted No Growth after 72 hours. All specime... 05/31/21 Respiratory Virus Panel (PCR) ([facility]) - Final, Complete Discharge Medications Scheduled Amlodipine Besylate (Amlodipine Besylate) 5 Mg Tab, 5 MG PO DAILY, (Reported) Aspirin (Aspirin EC) 81 Mg Tablet.dr, 81 MG PO QPM, (Reported) Atorvastatin Calcium (Atorvastatin Calcium) 20 Mg Tab, 20 MG PO QPM, (Reported) Cefdinir (Cefdinir) 300 Mg Capsule, 300 MG PO BID Diphenhydramine HCl (Diphenhydramine HCl) 25 Mg Cap, 25 MG PO QHS, (Reported) Doxycycline Monohydrate (Doxycycline) 100 Mg Capsule, 1 CAP PO BID Glimepiride (Amaryl) 2 Mg Tablet, 2 MG PO BID@0730,1730 Hydralazine HCl (Hydralazine HCl) 50 Mg Tab, 100 MG PO TID Loratadine (Claritin) 10 Mg Capsule, 10 MG PO DAILY, (Reported) Metoprolol Tartrate (Lopressor) 100 Mg Tablet, 100 MG PO BID, (Reported) Sodium Bicarbonate (Sodium Bicarbonate) 325 Mg Tablet, 650 MG PO BID Spironolactone (Aldactone) 25 Mg Tablet, 12.5 MG PO DAILY Trazodone HCl (Trazodone HCl) 100 Mg Tab, 100 MG PO QHS, (Reported) Allergies Coded Allergies: No Known Allergies (Verified , 03/06/03) Carrie Hendrickson MD Jun 05, 2021 14:38
== END 2021-06-05 15:53 | disposition home or self-care (01) | DRG 686 ==
LOC: M ED 09:58 → M ED INP 15:59 → M PCU 21:29
PROVIDERS: ADMIT General Practice; ATTEND Internal Medicine Nephrology
PROC: 0W9930Z Drainage of Right Pleural Cavity with Drainage Device, Percutaneous Approach (ICD-10-PCS; principal; 2021-06-01)
PROC: 0TB13ZX Excision of Left Kidney, Percutaneous Approach, Diagnostic (ICD-10-PCS; 2021-06-03)
DX: C64.2 Malignant neoplasm of left kidney, except renal pelvis (principal); J18.9 Pneumonia, unspecified organism; J90 Pleural effusion, not elsewhere classified; N17.9 Acute kidney failure, unspecified; E87.2 Acidosis; C79.51 Secondary malignant neoplasm of bone; C77.9 Secondary and unspecified malignant neoplasm of lymph node, unspecified; C78.01 Secondary malignant neoplasm of right lung; I16.0 Hypertensive urgency; N18.30 Chronic kidney disease, stage 3 unspecified; E11.9 Type 2 diabetes mellitus without complications; J44.9 Chronic obstructive pulmonary disease, unspecified; E78.5 Hyperlipidemia, unspecified; Z85.46 Personal history of malignant neoplasm of prostate; F17.200 Nicotine dependence, unspecified, uncomplicated; Z79.82 Long term (current) use of aspirin; Z79.899 Other long term (current) drug therapy; E87.5 Hyperkalemia